=== PATIENT | female | born 1950 | race Caucasian/White ===

== ENCOUNTER → 2023-07-01 13:54 | Outpatient (REF) | payer OTHER, SELFPAY | LOC: HWRAD 13:54 | PROVIDERS: ATTENDING PHYSICIAN Surgery; FAMILY PHYSICIAN Family Medicine | DX: N20.0 Calculus of kidney (principal) | CPT/HCPCS: 76775 ==

== ENCOUNTER → 2024-03-12 13:05 | Outpatient (REF) | payer OTHER, SELFPAY | LOC: WDC 13:05 | PROVIDERS: ATTENDING PHYSICIAN Family Medicine | DX: Z12.31 Encounter for screening mammogram for malignant neoplasm of breast (principal) | CPT/HCPCS: 77063; 77067 ==

== ENCOUNTER → 2024-07-15 16:08 | Outpatient (REF) | payer OTHER, SELFPAY | LOC: HWRAD 16:08 | PROVIDERS: ATTENDING PHYSICIAN Surgery; FAMILY PHYSICIAN Family Medicine | DX: N20.0 Calculus of kidney (principal) | CPT/HCPCS: 76775 ==

== ENCOUNTER → 2024-11-24 14:05 | Outpatient (REF) | payer OTHER, SELFPAY | LOC: RAD 14:05 | PROVIDERS: ATTENDING PHYSICIAN Family Medicine | DX: M54.42 Lumbago with sciatica, left side (principal); M79.602 Pain in left arm; R20.0 Anesthesia of skin; Z98.1 Arthrodesis status | CPT/HCPCS: 72050; 72110 ==

== ENCOUNTER 2025-01-17 08:43 | Inpatient (IN) | payer OTHER, SELFPAY ==
[2025-01-16] VITALS (31 sets, daily range): BP systolic 74–151; BP diastolic 46–89; BMI 37.8; BMI 38.3
--- NOTE | 2025-01-16 03:05 | ED.GENMED ---
History of Present Illness
<Azam Ibarra MD - Last Filed: 01/16/25 13:57>
General
Chief Complaint: Back Pain
Source: patient
Exam Limitations: none
Time Seen by Provider: 01/16/25 02:51
Nursing documentation reviewed up to this point in time: agreed with
History of Present Illness
History of Present Illness:
Patient presents to ED secondary to sudden onset of lower back pain when she got up from sitting position around 9 PM last night, which has gotten progressively worse. Denies direct trauma. Patient states that she has had similar symptoms in the
past secondary to sciatica. Denies loss of sensation or weakness. Denies nausea or vomiting. Denies abdominal pain. Denies fever or chills. Upon arrival to ED, patient is found to be hypotensive with discoloration noted in both legs, which
patient states is not normal. Denies recent illness. Denies recent change in medications or diet. Patient does not take any blood thinning medications.
Past History
<Azam Ibarra MD - Last Filed: 01/16/25 13:57>
Past History
ED Past Medical History: HTN, Hypercholesterolemia, Other (OA) and Other (sleep apnea)
Social History
Tobacco: Non-smoker
Living: with family
Review of Systems
<Azam Ibarra MD - Last Filed: 01/16/25 13:57>
Review of Systems
Allergies reviewed?: Yes
All Other Systems: ROS reviewed and negative except as documented in HPI and ROS
Constitutional: Reports no symptoms; Denies fever
Respiratory: Reports no symptoms
Cardiac: Reports no symptoms
ABD/GI: Reports no symptoms; Denies abdominal pain, vomiting or diarrhea
Musculoskeletal: Reports back pain
Skin: Reports no symptoms
Neurological: Reports numbness; Denies weakness
Phy Exam
<Azam Ibarra MD - Last Filed: 01/16/25 13:57>
Physical Exam
Physical Exam:
Physical Exam
General: mild painful distress, not acutely ill. afebrile. hypotensive
Head: nc/at. eomi
Neck: supple. normal range of motion
Heart: s1/s2 regular rate and rhythm
Lungs: no acute respiratory distress. clear bilaterally
Abdomen: normal bowel sounds. no distention. nontender to palpation
Neuro: alert and oriented x 3. no focal neurological deficits
Skin: no rash
Psychiatric: well kept. interactive and cooperative
Extremities: LE b/l, nonpitting edema with discoloration/dusky appearing
Course
<Azam Ibarra MD - Last Filed: 01/16/25 13:57>
Orders/Labs/Results
Orders:
Orders
01/16/25 02:53
Electrocardiogram (*1) Urgent
Reason for Study: Hypertension, Benign
EKG- Treatment ONCE
01/16/25 02:59
Type And Crossmatch [Type+Screen] Urgent
Complete Blood Count/With Diff Urgent
Comprehensive Metabolic Panel Urgent
Glycohemoglobin (HgbA1c) Urgent
PTT Urgent
Prothrombin Time Urgent
TSH Urgent
Comment: ADD ON
Troponin I Urgent
01/16/25 03:03
CT Abd Aorta Angio W/ Run Off Urgent
Comment:
Reason For Exam: low back pain with lower ext discoloration
01/16/25 03:34
Acetaminophen 1000MG/100Ml [Ofirmev] 1,000 mg in 100 ml IV ONCE
Acetaminophen IV Indication:: ED Narcotic Naive Pt-ONCE
01/16/25 04:27
Dexamethasone Sod Phosphate [Decadron] 10 mg IV NOW STA
Fentanyl Citrate/Pf [Sublimaze] 100 mcg .ROUTE .STK-MED ONE
Fentanyl Citrate/Pf [Sublimaze] 25 mcg IV NOW STA
01/16/25 04:37
0.9% Sodium Chloride 1000 ml [Nss] 1,000 ml IV BOLUS
01/16/25 04:38
0.9% Sodium Chloride 500 ml [Nss] 500 ml IV BOLUS
01/16/25 Breakfast
Cholesterol Lowering
At Your Request: Full Participation
Cholesterol Lowering: Sodium, 2 Gram
01/16/25 07:08
Bedside Glucose- Treatment ONCE
01/16/25 08:14
Admit/Transfer Patient As Directed
Co-Sign Provider:
Level of Care: Observation services
Assign to:: Medical/Surgical
Physician / Group: hospitalist
Diagnosis: CRYSTAL
Reason for Hospitalization: CRYSTAL
01/16/25 08:15
PRN Pain Medication Management As Directed
May give lesser potent ordered pain med per pt: Yes
preference::
Protocol:: Medication orders for pain may be administered in a
manner that supports deferring to patient preference
when the pt is:
- Requesting an ordered lesser potent pain medication.
Least to most potent pain medications are defined
as: acetaminophen < NSAID < tramadol < opioids
(morphine, oxycodone, hydromorphone).
- Requesting a lesser dose of the same medication IF
ORDERED.
- Requesting a less intrusive route of administration
if both routes are prescribed by the provider (PO <
IV).
01/16/25 08:16
Code Status As Directed
Resuscitation Status: Full Code
01/16/25 08:40
Add On- LAB Routine
Tests Added?: hemoglobin A1C, TSh
01/16/25 12:42
0.9% Sodium Chloride 1000 ml [Nss] 1,000 ml IV 100 mls/hr
Acetaminophen [Tylenol] 650 mg PO Q6HPRN PRN
Bisacodyl [Dulcolax] 10 mg RECTAL [id number] PRN
Docusate W/Senna [Senokot-S] 1 tablet PO BIDPRN PRN
HydrALAZINE [Apresoline] 5 mg IV Q6HPRN PRN
Oxycodone [Roxicodone] 5 mg PO Q4HPRN PRN
Polyethylene Glycol Powder [Miralax] 17 grams PO DAILYPRN PRN
01/16/25 12:42
Activity As Directed
Activity Level: Out of Bed-Early Mobility
Vital Signs As Directed
Frequency: Per unit guidelines
Ot Eval And Treat Routine
Pt Eval And Treat Routine
Activity Level: Out of Bed-Early Mobility
DX Deep Vein Thrombosis Video Routine
01/16/25 12:48
BMP [Basic Metabolic Panel] Routine
01/16/25 18:00
Enoxaparin Sodium [Lovenox] 40 mg SC QPM
01/17/25 06:00
Basic Metabolic Panel IN AM
Complete Blood Count/No Diff IN AM
Abnormal Lab Results
01/16/25 01/16/25
02:59 07:17
MCHC 32.1 L g/dL
(33.0-37.0)
Neutrophils % 75.8 H %
(42.2-75.2)
Lymphocytes % 16.7 L %
(20.5-51.1)
PT 15.1 H Sec
(11.4-14.6)
APTT 22.4 L Sec
(23.4-35.0)
Potassium 5.3 H mmol/L
(3.5-5.1)
BUN 36 H mg/dl
(7-17)
Creatinine 1.8 H mg/dL
(0.6-1.0)
Glucose 239 H mg/dl
(70-99)
POC Glucose 135 H mg/dl
(70-99)
01/16/25 02:59
01/16/25 02:59
Vital Signs
Initial and Last Documented VS:
Initial Vital Signs
Temp Pulse Resp BP Pulse Ox
97.6 F 100 24 83/54 99
01/16/25 02:42 01/16/25 02:42 01/16/25 02:42 01/16/25 02:42 01/16/25 02:42
Last Documented Vital Signs
Temp Pulse Resp BP Pulse Ox
97.6 F 62 14 150/64 99
01/16/25 02:42 01/16/25 12:00 01/16/25 12:00 01/16/25 12:00 01/16/25 12:00
<Zeeshan Renteria DO - Last Filed: 01/16/25 07:00>
Orders/Labs/Results
Orders:
Orders
01/16/25 02:53
Electrocardiogram (*1) Urgent
Reason for Study: Hypertension, Benign
EKG- Treatment ONCE
01/16/25 02:59
Type And Crossmatch [Type+Screen] Urgent
Complete Blood Count/With Diff Urgent
Comprehensive Metabolic Panel Urgent
Glycohemoglobin (HgbA1c) Urgent
PTT Urgent
Prothrombin Time Urgent
TSH Urgent
Comment: ADD ON
Troponin I Urgent
01/16/25 03:03
CT Abd Aorta Angio W/ Run Off Urgent
Comment:
Reason For Exam: low back pain with lower ext discoloration
01/16/25 03:34
Acetaminophen 1000MG/100Ml [Ofirmev] 1,000 mg in 100 ml IV ONCE
Acetaminophen IV Indication:: ED Narcotic Naive Pt-ONCE
01/16/25 04:27
Dexamethasone Sod Phosphate [Decadron] 10 mg IV NOW STA
Fentanyl Citrate/Pf [Sublimaze] 100 mcg .ROUTE .STK-MED ONE
Fentanyl Citrate/Pf [Sublimaze] 25 mcg IV NOW STA
01/16/25 04:37
0.9% Sodium Chloride 1000 ml [Nss] 1,000 ml IV BOLUS
01/16/25 04:38
0.9% Sodium Chloride 500 ml [Nss] 500 ml IV BOLUS
01/16/25 Breakfast
Cholesterol Lowering
At Your Request: Full Participation
Cholesterol Lowering: Sodium, 2 Gram
01/16/25 07:08
Bedside Glucose- Treatment ONCE
01/16/25 08:14
Admit/Transfer Patient As Directed
Co-Sign Provider:
Level of Care: Observation services
Assign to:: Medical/Surgical
Physician / Group: hospitalist
Diagnosis: CRYSTAL
Reason for Hospitalization: CRYSTAL
01/16/25 08:15
PRN Pain Medication Management As Directed
May give lesser potent ordered pain med per pt: Yes
preference::
Protocol:: Medication orders for pain may be administered in a
manner that supports deferring to patient preference
when the pt is:
- Requesting an ordered lesser potent pain medication.
Least to most potent pain medications are defined
as: acetaminophen < NSAID < tramadol < opioids
(morphine, oxycodone, hydromorphone).
- Requesting a lesser dose of the same medication IF
ORDERED.
- Requesting a less intrusive route of administration
if both routes are prescribed by the provider (PO <
IV).
01/16/25 08:16
Code Status As Directed
Resuscitation Status: Full Code
01/16/25 08:40
Add On- LAB Routine
Tests Added?: hemoglobin A1C, TSh
01/16/25 12:42
0.9% Sodium Chloride 1000 ml [Nss] 1,000 ml IV 100 mls/hr
Acetaminophen [Tylenol] 650 mg PO Q6HPRN PRN
Bisacodyl [Dulcolax] 10 mg RECTAL [id number] PRN
Docusate W/Senna [Senokot-S] 1 tablet PO BIDPRN PRN
HydrALAZINE [Apresoline] 5 mg IV Q6HPRN PRN
Oxycodone [Roxicodone] 5 mg PO Q4HPRN PRN
Polyethylene Glycol Powder [Miralax] 17 grams PO DAILYPRN PRN
01/16/25 12:42
Activity As Directed
Activity Level: Out of Bed-Early Mobility
Vital Signs As Directed
Frequency: Per unit guidelines
Ot Eval And Treat Routine
Pt Eval And Treat Routine
Activity Level: Out of Bed-Early Mobility
DX Deep Vein Thrombosis Video Routine
01/16/25 12:48
BMP [Basic Metabolic Panel] Routine
01/16/25 18:00
Enoxaparin Sodium [Lovenox] 40 mg SC QPM
01/17/25 06:00
Basic Metabolic Panel IN AM
Complete Blood Count/No Diff IN AM
Abnormal Lab Results
01/16/25 01/16/25
02:59 07:17
MCHC 32.1 L g/dL
(33.0-37.0)
Neutrophils % 75.8 H %
(42.2-75.2)
Lymphocytes % 16.7 L %
(20.5-51.1)
PT 15.1 H Sec
(11.4-14.6)
APTT 22.4 L Sec
(23.4-35.0)
Potassium 5.3 H mmol/L
(3.5-5.1)
BUN 36 H mg/dl
(7-17)
Creatinine 1.8 H mg/dL
(0.6-1.0)
Glucose 239 H mg/dl
(70-99)
POC Glucose 135 H mg/dl
(70-99)
01/16/25 02:59
01/16/25 02:59
Vital Signs
Initial and Last Documented VS:
Initial Vital Signs
Temp Pulse Resp BP Pulse Ox
97.6 F 100 24 83/54 99
01/16/25 02:42 01/16/25 02:42 01/16/25 02:42 01/16/25 02:42 01/16/25 02:42
Last Documented Vital Signs
Temp Pulse Resp BP Pulse Ox
97.6 F 62 14 150/64 99
01/16/25 02:42 01/16/25 12:00 01/16/25 12:00 01/16/25 12:00 01/16/25 12:00
<Azam Ibarra MD - Last Filed: 01/16/25 13:57>
MDM/Problems Addressed
MDM/Problems Addressed:
DPP detected via use of doppler. Decreased sensation reported by patient. STAT CTA aorta with runoff ordered
CTA report reviewed and discussed with on-call vascular surgery () - will come and evaluate the patient in ED, to determine course of treatment. Pt with normal strength with minimally decreased sensation bilaterally.
<Azam Ibarra MD - Last Filed: 01/16/25 13:57>
*Pulse Oximetry
SaO2: 99
Oxygen Mode of Delivery: Room air
Patient hypoxic: no
*EKG
Interpreted by ED Provider?: Yes
EKG Intrepretation Date: 01/16/25
Heart Rate: 94
Rate: normal
Rhythm: sinus
[place]: normal axis
*Critical Care Note
Total Time (30-74mins, 75-104mins- exclusive of procedures): Not Applicable
<Zeeshan Renteria DO - Last Filed: 01/16/25 07:00>
Update Note
Update Note:
PT received in sign out. being seen by vascular surgery now. given initial hypotension and CRYSTAL with ? vascular findings, admit. BP now stable. in addition, hyperglycemia noted...new.
ED Attending Note
<Azam Ibarra MD - Last Filed: 01/16/25 13:57>
-
Portions of this chart may have been created with voice recognition software.� Occasional wrong word or��sound alike� substitutions may have occurred due to the inherent limitations of voice recognition software.
Discharge Plan
Departure
Patient Disposition: Admit
Date of Disposition: 01/16/25
Time of Disposition: 06:58
Admit to: Telemetry
Presentation/result/management discussed w/ accepting MD/DO: Hospitalist
Discharge Problem:
Acute kidney injury, Volume depletion, Acute hyperglycemia
Interventions
Interventions:
*Risk Screen - Suicide Last Done: 01/16/25 02:50
*General Assessment Last Done: 01/16/25 02:50
*Neglect/Abuse Screening Last Done: 01/16/25 02:50
*ED- Fall Risk Assessment Last Done: 01/16/25 02:50
*ED COVID-19 Vaccine History Last Done: 01/16/25 02:50
*ED Influenza Vaccine History Last Done: 01/16/25 02:50
ED-Musculoskeletal Assessment Last Done: 01/16/25 02:51
[2025-01-16 03:15] LABS: Hematocrit 39.3 % (37.0-47.0); Hemoglobin 12.6 g/dL (12.0-16.0); Mean Corp Hgb Conc. 32.1 g/dL (33.0-37.0); Mean Corpuscular Volume 91.2 fL (81.0-99.0); Nucleated Red Blood Cells % 0 %; Platelet Count 176 10^3/uL (130-400); Red Cell Dist. Width 14.1 % (11.5-14.5)
[2025-01-16 03:26] LABS: ALT (SGPT) 22 U/L (0-35); AST (SGOT) 27 U/L (14-36); Albumin 4.5 g/dl (3.5-5.0); Alkaline Phosphatase 59 U/L (38-126); Blood Urea Nitrogen 36 mg/dl (7-17); Calcium 9.9 mg/dl (8.4-10.2); Carbon Dioxide 22 mmol/L (22-30); Chloride 107 mmol/L (98-107); Estimated Creatinine Clearance 33 ml/min; Glucose 239 mg/dl (70-99); INR 1.18; PT 15.1 Sec (11.4-14.6); Potassium 5.3 mmol/L (3.5-5.1); Sodium 140 mmol/L (135-145); Total Protein 7.3 g/dl (6.3-8.2); eGFR 29.38
[2025-01-16 03:27] LABS: APTT 22.4 Sec (23.4-35.0)
[2025-01-16 03:36] LABS: Troponin I 0.029 ng/ml
[2025-01-16] MEDS: OFIRMEV 100 IV (03:37)
[2025-01-16] MEDS: SUBLIMAZE 25 MCG IV (04:31)
[2025-01-16] MEDS: DECADRON 10 MG IV (04:32)
[2025-01-16] MEDS: NSS 1000 IV ×3 (04:37→21:56)
[2025-01-16] MEDS: NSS 500 IV (04:38)
[2025-01-16 07:18] LABS: Glucose - Point of Care 135 mg/dl (70-99)
--- NOTE | 2025-01-16 07:41 | CON.VAS ---
Medical History
-
Chief Complaint: back pain
History of Present Illness:
74 yo F presented with severe back pain last night. She has a history of sciatica and arthritis. Was given steroids and pain medication and currently says her pain has improved. She also was somewhat hypotensive on admission which resolved with
fluids. In the ED it was also noticed that both of her feet were purple. She denies any pain, motor or sensory loss in her legs or feet and says she has not noticed any discoloration before. She says baseline she has no claudication, rest pain or
wounds. CT concerning for lack of contrast distally.
Social History
Tobacco: Smoker
Family History
Family History: Reviewed & Not Pertinent
Allergies / Home Medications
Allergy/AdvReac Type Severity Reaction Status Date / Time
Penicillins Allergy Mild Unknown Verified 01/16/25 03:00
�Medication �Instructions �Recorded �Confirmed �Type
Septra Ds Tablet 1 tab PO BID 12/02/08 12/02/08 History
phenazopyridine 200 mg tablet 200 mg PO PRN PRN urinary 12/02/08 12/02/08 History
hydrocodone 5 mg-acetaminophen 500 1 tab PO .Q4-6HPRN PRN PAIN ##20 03/09/13 Rx
mg tablet
Physical Exam
Vital Signs
Temp Pulse Resp BP Pulse Ox
97.6 F 58 15 122/53 96
01/16/25 02:42 01/16/25 06:45 01/16/25 06:45 01/16/25 06:45 01/16/25 06:45
Lab Results
01/16/25 02:59
01/16/25 02:59
Troponin I 0.029 ng/ml 01/16/25 02:59
Physical Exam
General: Well Developed, Well Nourished, No Apparent Distress and Comfortable
Cardiac: S1/S2
GI: Soft
Musculoskeletal: No Cyanosis (Upon my assessment, feet both pink and warm)
Skin: Warm
Neuro: AO x 3
Psych: Calm
Pulses: Bilateral Femoral: +2, Bilateral Dorsalis Pedis: +2 and Bilateral Posterior Tibial: +2
Assessment / Plan
-
74 yo F here with back pain, incidental purple discoloration of feet
-Upon my assessment fortunately her feet appear pink and well perfused and she has no symptoms. I personally reviewed her CTA. She has in line flow bilaterally until her distal calves, where all tibial vessels do not opacify. Based on her clinical
picture I suspect this is due to contrast timing, cardiac dysfunction limiting contrast progression, or hypoperfusion secondary to the hypotension she had upon admission. She has nice biphasic DP and PT signals currently with no signs of acute or
chronic limb ischemia. No further vascular surgical work up or intervention.
--- NOTE | 2025-01-16 08:19 | HPS.HSE ---
Addendum entered and electronically signed by Gabriel Edmondson MD 01/16/25 13:47:
I personally performed a history and physical exam of the patient and discussed management with the resident. I reviewed the resident's note and agree with the documented findings and plan of care HPI/CC.
Patient is a 74-year-old female with past medical history of essential hypertension, GERD, hepatitis B, history of venous insufficiency, history of IVC filter placement, hyperlipidemia, sciatica came to ER with new onset of lower back pain. Patient
was in her usual state of health until yesterday evening when 9 in the evening patient started having significant lower back pain. Patient took Tylenol and went to bed. In the morning around 2 patient woke up to use the bathroom and continues to
have persistent pain. Patient was feeling diaphoretic and bit nauseous at that time. Due to persistent symptom EMS was called and patient was brought into the ER. In ER patient was noted to hypotensive. Also patient was noted to having bilateral
lower extremity bluish discoloration concerning for acute limb threatening ischemia. A stat CTA angio was done in ER which showed decreased blood flow to lower extremity below popliteal level. Patient was evaluated by vascular surgery and this was
felt to be related to hypoperfusion related. Patient was noted to having renal dysfunction and was planned to be admitted for further evaluation.
During my visit patient resting comfortably and not voicing any complaints of abdominal pain/nausea/vomiting. Patient back pain is better with pain medication/steroid injection,. Patient voices having history of lumbar spinal surgeries but nothing
recent. No fecal or urinary incontinence reported.
Patient denies of having any chest pain/palpitation/dizziness. Oral intake has been normal.
HEENT: No pallor, cyanosis, or jaundice. Throat clear.
NECK: Supple. No JVD.
RESPIRATORY: Lungs clear to auscultation.
CVS: S1, S2 normal. RRR. No murmur, rub or gallop.
ABDOMEN: Soft, non-tender. No distension. BS+/normal.
EXTREMITIES: [place] b/l LE, varicose vein
[employer]: AOx3. No focal deficits.
1. Acute kidney injury on CKD stage IIIA
Right atrophic kidney
- Baseline creatinine 1.1 with GFR of 45+ on outpatient labs
- Creatinine of 1.8 in the morning today
- CT abdomen pelvis did not show any major structural issue
- Possibly combination of lisinopril and Hypotension related. Clinically unclear why patient have Hypotension. No clear signs of infection. No signs of overt volume depletion
- Maintain on IV hydration with normal saline
- Bladder scan and straight cath protocol ordered
2. Hyperkalemia
- Mild and likely driven by CRYSTAL with added potassium citrate use
- Hold IVETH/potassium supplement and monitor potassium post IV hydration
3. Lower extremity discoloration
- CT abdomen pelvis done for concern of acute limb threatening ischemia, infrapopliteal vasculature was poorly visualized likely from hypoperfusion.
- Vascular surgery signed off and no further imaging warranted
4. Sciatica
- Patient got IV Decadron 10 mg in ER, hold further steroid
- Maintain on oral pain medication
- PT OT evaluation
5. Hypotension
- Resolved with IV hydration
- Reason unclear
- Hold blood pressure medication for next 24hrs
6. History of kidney stone
- CT abdomen pelvis showing right upper pole kidney, follows with urology
- Potassium citrate to be held
7. Rheumatoid arthritis
- Significant arthropathy of hand and have difficulty doing fine motor activity
- On Plaquenil to be continued
Full code
Total time spent : 77 mins
I personally saw and examined the patient.
I have reviewed all diagnostic interpretations and treatment plans as written.
Time includes patient management by me, time spent at the patients bedside, time to review lab and imaging results, discussing patient care, documentation in the medical record, and time spent with the family or caregiver and discussing care plan
with RN/Consultants.
Original Note:
Family Physician
-
Family Physician: Brielle Rome
Chief Complaint
-
Low back pain, weakness of lower extremities
History of Present Illness
74-year-old female with history of rheumatoid arthritis, hypertension, urinary incontinence, GERD, chronic low back and neck pain presents sudden onset of lower back pain when she got up from bed at 2 AM to use the restroom. She had similar kind of
pain last night at 9 PM before going to sleep and she noticed that this pain has worsened. She denies any falls/trauma. She states that when she was trying to get up from sitting to standing position she felt sharp shooting pain going down her
legs similar to sciatica. She denies any fever, chills, abdominal pain, vomiting. She admits to feeling a bit too nauseous. She was seen by her family doctor 1 month ago for chronic low back pain and was prescribed prednisone for 10 days which
helped.
Upon arrival to the ED she was hypotensive 83/54, and was found to have discoloration of both legs which was new. Fluid resuscitation helped to improve blood pressure.
Medical History
Past Medical History
Past Medical History: Reports HTN, Hypercholesterolemia and Other (CKD, rheumatoid arthritis, chronic low back pain)
Past Surgical History: Reports Other (Back surgeries )
Social History
Tobacco: Non-smoker
Alcohol: None
Drug: None
Personal:
Living: With Family
Employment: Retired
Family History
Family History: Not pertinent
Allergies / Home Medications
Allergies reflects when Allergies were last updated in [facility].
Home Medications with original date entered in [facility]
Allergy/Medication List:
Allergies
Allergy/AdvReac Type Severity Reaction Status Date / Time
Penicillins Allergy Mild Unknown Verified 01/16/25 03:00
Home Medications
Septra Ds Tablet 1 tab PO BID 12/02/08
phenazopyridine 200 mg tablet 200 mg PO PRN PRN urinary 12/02/08
hydrocodone 5 mg-acetaminophen 500 mg tablet 1 tab PO .Q4-6HPRN PRN PAIN ##20 03/09/13
Review of Systems
-
History Source: Patient
A 12 point ROS was completed and negative except as noted: Yes
Physical Exam
Vital Signs
Vital Signs
Temp Pulse Resp BP Pulse Ox
97.6 F 78 21 135/78 98
01/16/25 02:42 01/16/25 08:00 01/16/25 08:00 01/16/25 07:30 01/16/25 08:00
Physical Exam
General: Comfortable and Conversant
HEENT: NormoCephalic, Anicteric and Other (dry mucous membrane )
Respiratory: Clear
Cardiac: S1/S2 and Regular Rhythm
GI: Soft, Non Tender, Non Distended and Normal Bowel Sounds
Musculoskeletal: No Edema and Other (B/l LE: well perfused LE b/l, 2+ DP bilaterally, purplish blue discoloration. )
Skin: Warm
Neuro: AO x 3
Hematologic/Lymphatic: No Lymphadenopathy
Psych: Calm
Laboratory Results
-
01/16/25 02:59
01/16/25 02:59
Laboratory Results
PT 15.1 Sec (11.4-14.6) H 01/16/25 02:59
INR 1.18 01/16/25 02:59
APTT 22.4 Sec (23.4-35.0) L 01/16/25 02:59
Total Bilirubin 0.6 mg/dl (0.2-1.3) 01/16/25 02:59
AST 27 U/L (14-36) 01/16/25 02:59
ALT 22 U/L (0-35) 01/16/25 02:59
Alkaline Phosphatase 59 U/L (38-126) 01/16/25 02:59
Troponin I 0.029 ng/ml 01/16/25 02:59
Data Reviewed
-
CT Scan: Report Reviewed by me and Discussed with Physician
Lab Data: Labs Reviewed by me and Discussed with Physician
Impression/Plan
-
IMPRESSION:
Bilateral lower extremity pain
Acute on chronic kidney injury
History of right renal chronic atrophy
History of chronic right renal stone
Hyperkalemia
Low back pain
Essential hypertension
History of rheumatoid arthritis
Hyperlipidemia
PLAN:
Bilateral lower extremity pain with skin discoloration
Admit to observation
Suspect hypoperfusion of lower extremity vs DVT
Hypotensive on arrival to ED. Unclear reason for hypotension.
Fluid resuscitation improved blood pressure
Well-perfused bilateral lower extremity, 2+ dorsalis pedis
Vascular aware, no further intervention recommended by vascular because of no acute or chronic signs of venous insufficiency
Continue IV fluids
Tylenol, oxycodone for pain control
Monitor
Acute on chronic kidney injury
Questionable for hypoperfusion vs renal stone
History of CKD stage IIIb
History of right renal chronic atrophy
Creatinine 1.8, baseline is 1.12
Continue IV fluids
Monitor BMP
Hyperkalemia
K5.3
Hold lisinopril
Hold KCl
Monitor BMP. Lokelma if K keeps rising
Low back pain
PT /OT
Tylenol, oxycodone for pain
Hyperglycemia
Monitor glucose
check A1c
Sliding scale
Essential hypertension
Hold lisinopril
IV hydralazine as needed
Monitor blood pressure
Hyperlipidemia
Continue Lipitor
History of rheumatoid arthritis
Full code
Lovenox
chol lowering diet
--- NOTE | 2025-01-16 10:23 | EDCM ---
Reviewed chart and met with pt bedside in ED. Pt lives with her in 1 story home with 3 [address], has railings.
Independent with ADLs, personal care and ambulation at baseline. Uses Rollator, also has SPC, WC, grab bars in shower and around toilet, also has shower chair but does not use, is disabled and also uses equipment.
BERRY reviewed and singed, copy left with pt.
Confirms prescription coverage.
Hx VN in distant past, no hx SNF
PCP: Brielle Rome
Pharmacy: [facility] [address], [place]
CM will continue to follow for all discharge planning needs.
[2025-01-16 10:54] LABS: TSH 1.08 uIU/ml (0.47-4.68)
[2025-01-16 13:08] LABS: Blood Urea Nitrogen 40 mg/dl (7-17); Calcium 9.5 mg/dl (8.4-10.2); Carbon Dioxide 18 mmol/L (22-30); Chloride 107 mmol/L (98-107); Estimated Creatinine Clearance 31 ml/min; Glucose 157 mg/dl (70-99); Potassium 4.8 mmol/L (3.5-5.1); Sodium 136 mmol/L (135-145); eGFR 27.54
[2025-01-16 13:49] LABS: Glycohemoglobin (HgbA1c) 5.6 % (4.0-5.9)
[2025-01-16] MEDS: DITROPAN 15 MG PO (14:09)
[2025-01-16] MEDS: LIPITOR 10 MG PO (14:09)
[2025-01-16] MEDS: LOVENOX 40 MG SC (17:47)
[2025-01-16] MEDS: SODIUM BICARBONATE 650 MG PO ×2 (17:47→21:48)
[2025-01-16] MEDS: TYLENOL 650 MG PO (21:47)
[2025-01-16] MEDS: PLAQUENIL 200 MG PO (21:48)
[2025-01-17 06:00] VITALS: BMI 38.3
[2025-01-17 07:23] VITALS: BP 102/52
[2025-01-17 08:21] LABS: Blood Urea Nitrogen 43 mg/dl (7-17); Calcium 9.1 mg/dl (8.4-10.2); Carbon Dioxide 17 mmol/L (22-30); Chloride 108 mmol/L (98-107); Estimated Creatinine Clearance 27 ml/min; Glucose 111 mg/dl (70-99); Potassium 4.7 mmol/L (3.5-5.1); Sodium 136 mmol/L (135-145); eGFR 23.09
[2025-01-17 08:45] LABS: Hematocrit 37.1 % (37.0-47.0); Hemoglobin 12.1 g/dL (12.0-16.0); Mean Corp Hgb Conc. 32.6 g/dL (33.0-37.0); Mean Corpuscular Volume 92.1 fL (81.0-99.0); Platelet Count 138 10^3/uL (130-400); Red Cell Dist. Width 14.4 % (11.5-14.5)
[2025-01-17] MEDS: LIPITOR 10 MG PO (09:02)
[2025-01-17] MEDS: DITROPAN 15 MG PO (09:02)
[2025-01-17] MEDS: PLAQUENIL 200 MG PO ×2 (09:02→20:11)
[2025-01-17] MEDS: SODIUM BICARBONATE 650 MG PO (09:02)
[2025-01-17] MEDS: NSS IV (09:24)
[2025-01-17] MEDS: SODIUM BICARBONATE 1150 MEQ IV ×2 (09:28→17:13)
[2025-01-17 10:02] LABS: Cortisol, Random 9.0 ug/dl
--- NOTE | 2025-01-17 11:45 | W.CON.NEPH ---
Consultation
-
Date/Time Consultation Requested: 01/17/2025 11 AM
Date/Time Consultation Performed: 01/17/2025 11 AM
Requesting Provider: Dr. Edmondson
Performing Provider: Dr. Chiu
Reason for Consultation: CRYSTAL
Medical History
-
Chief Complaint: Back pain
History of Present Illness:
This is a 74-year-old female who has chronic kidney disease stage IIIa baseline creatinine approximately 1.1 at baseline. She has hyperlipidemia controlled with statin therapy as well as rheumatoid arthritis controlled with hydroxychloroquine. She
says that a couple of weeks ago she had a 10-day course of steroids because of significant rheumatoid pain. Yesterday she developed significant lower back pain with worsening numbness down her legs. She came to the emergency room because of this.
She was noted to be extremely hypotensive with systolic blood pressures in the 80s. There is concern that she had bluish discoloration of her lower legs with ischemia and a CT angiogram was performed. She was evaluated by vascular surgery who do
not believe that this was an acute ischemic issue but rather a hypotensive hypoperfusion issue. He was given IV fluids and started on midodrine with improvement of her blood pressures as well as improvement of the duskiness of her legs. She was
noted to have acute kidney injury with creatinine of 1.8 at the time of admission which has now risen to 2.1. Her back pain is still present though slightly improved.
Past Medical History
Hypertension
Nephrolithiasis, uric acid
Staghorn calculus left
Atrophic right kidney
CKD 3A
Rheumatoid arthritis
Back surgery
Spontaneous CSF leak with repair
Uterine prolapse�pessary
L4-L5 spinal fusion
Left knee replacement
Right hip replacement
IVC filter
Venous insufficiency
Social History
Tobacco: Former Smoker
Alcohol: None
Family History
Family History: Not Pertinent
Allergies / Home Medications
Allergy/AdvReac Type Severity Reaction Status Date / Time
Penicillins Allergy Mild Unknown Verified 01/16/25 17:50
�Medication �Instructions �Recorded �Confirmed �Type
acetaminophen 325 mg tablet 650 mg PO Q6HPRN PRN mild pain 01/16/25 01/16/25 History
(Tylenol)
atorvastatin 10 mg tablet (Lipitor) 10 mg PO DAILY 01/16/25 01/16/25 History
calcium carbonate (Tums) 200 mg PO QIDPRN PRN gerd 01/16/25 01/16/25 History
folic acid 1 mg tablet 1 mg PO DAILY 01/16/25 01/16/25 History
glucosamine sulf dipot 1 cap PO DAILY Supplement 01/16/25 01/16/25 History
chlr,msm,chond 550 mg-C 30 mg-ozzy
1 mg capsule (Glucosamine
Chondroitin)
hydroxychloroquine 200 mg tablet 200 mg PO BID 01/16/25 01/16/25 History
(Plaquenil)
lisinopril 10 mg tablet 10 mg PO DAILY 01/16/25 01/16/25 History
oxybutynin chloride 15 mg 15 mg PO DAILY 01/16/25 01/16/25 History
tablet,extended release 24 hr
potassium chloride 10 mEq 20 meq PO BID 01/16/25 01/16/25 History
tablet,extended release
psyllium 1 packet PO DAILY 01/16/25 01/16/25 History
therapeutic multivitamin 1 tab PO DAILY 01/16/25 01/16/25 History
Physical Exam
Vital Signs
Vital Signs
Temp Pulse Resp BP Pulse Ox
97.6 F 84 20 102/52 98
01/17/25 07:23 01/17/25 07:23 01/17/25 07:23 01/17/25 07:23 01/17/25 07:23
Lab Results
WBC 10.3 10^3/uL (4.8-10.8) 01/17/25 07:18
RBC 4.03 10^6/uL (4.20-5.40) L 01/17/25 07:18
Hgb 12.1 g/dL (12.0-16.0) 01/17/25 07:18
Hct 37.1 % (37.0-47.0) 01/17/25 07:18
Plt Count 138 10^3/uL (130-400) D 01/17/25 07:18
Sodium 136 mmol/L (135-145) 01/17/25 07:18
Potassium 4.7 mmol/L (3.5-5.1) 01/17/25 07:18
Chloride 108 mmol/L (98-107) H 01/17/25 07:18
Carbon Dioxide 17 mmol/L (22-30) L 01/17/25 07:18
BUN 43 mg/dl (7-17) H 01/17/25 07:18
Creatinine 2.2 mg/dL (0.6-1.0) H 01/17/25 07:18
eGFR 23.09 01/17/25 07:18
Glucose 111 mg/dl (70-99) H 01/17/25 07:18
Calcium 9.1 mg/dl (8.4-10.2) 01/17/25 07:18
Albumin 4.5 g/dl (3.5-5.0) 01/16/25 02:59
Laboratory Tests
05/21/22 01/16/25
12:47 02:59
Creatinine 0.8 1.8 H
October 10, 2024 creatinine 1.1, bicarbonate 19
CT angio abdomen 01/16/2025
IMPRESSION:
1. SEVERE DISCOGENIC DEGENERATIVE DISEASE at L2/L3, L3/L4, and L5/S1.
2. Previous posterior decompression and bilateral posterior osseous fusion/instrumentation at L4/L5.
3. SEVERE CHRONIC ASYMMETRIC ATROPHY of the RIGHT KIDNEY suggesting chronic ischemia.
4. Bilateral adrenal adenomas.
5. Small hiatal hernia.
6. Laparoscopic gastric band and IVC filter in place.
7. Severe diverticulosis in the sigmoid colon.
8. Large amount of fecal material in the rectum.
9. Severe atrophy of the muscles of the right lower leg and foot.
10. Bilateral total hip arthroplasties in place.
11. Left total knee arthroplasty in place.
ABDOMINAL AORTA:
1. COMPLETE CHRONIC OCCLUSION of the RIGHT RENAL ARTERY with severe right renal ischemia. Severe chronic right renal atrophy.
2. Minimal atherosclerotic plaque in the abdominal aorta.
RIGHT LOWER EXTREMITY:
1. SEVERE INFRAPOPLITEAL ATHEROSCLEROTIC DISEASE. Occlusion of the anterior tibial, posterior tibial, and peroneal arteries in the mid lower leg without evidence for arterial runoff to the level of the right ankle or foot.
2. No CTA evidence for stenosis or occlusion in the right iliac, femoral, or popliteal arteries.
LEFT LOWER EXTREMITY:
1. SEVERE INFRAPOPLITEAL ATHEROSCLEROTIC DISEASE with three-vessel runoff to the level of the left ankle, but not into the left foot.
2. No CTA evidence for flow-limiting stenosis or occlusion in the left iliac, femoral, or popliteal arteries.
Physical Exam
Patient is awake alert oriented and in no distress. Mood and affect were pleasant, insight and judgment were good. Pupils are equal round and reactive to light, extraocular movements are intact, sclera were anicteric. Hearing was normal, ears and
nose are intact. Oropharynx was clear. Neck was supple with trachea midline and no thyromegaly. Heart was regular rate and rhythm without rubs. Lower extremities without edema. Lungs were clear to auscultation bilaterally and with normal
excursion. Abdomen was soft, nontender, with normal active bowel sounds, and no hepatosplenomegaly. Skin was without rash and with normal turgor.
Data Reviewed
-
CT Scan: Report Reviewed by me
Medical Tests (Nuc Med, Echo etc): Image Personally Visualized and interpreted (EKG 01/16/2025 by my reading normal sinus rhythm)
Labs: Labs Reviewed by me
Old Records: Reviewed
Assessment/Plan
-
Assessment
CRYSTAL
CKD 3A, 1.1
Uric acid nephrolithiasis with left staghorn calculus
Atrophic right kidney
Hypertension
Hypotension
Back pain
Lower extremity neuropathy
rheumatoid arthritis
Metabolic acidosis
Hyperkalemia
Plan
Check cosyntropin stim test
Follow BMP there certainly may be a evolving component of contrast nephropathy
On top of CRYSTAL which is evolving from hypotension
Check urine studies
Hold lisinopril
Hold potassium supplements
Continue IV fluids
Wean midodrine as allowed
[2025-01-17] MEDS: BenGay-Like 1 APPLIC TOPICAL ×3 (12:55→22:41)
--- NOTE | 2025-01-17 13:20 | W.PN.HOSP.TC ---
Today's Communication/Plan
-
see note
Assessment / Plan
Assessment / Plan
CTA a/p with LE runoff
1. SEVERE DISCOGENIC DEGENERATIVE DISEASE at L2/L3, L3/L4, and L5/S1.
2. Previous posterior decompression and bilateral posterior osseous fusion/instrumentation at L4/L5.
3. SEVERE CHRONIC ASYMMETRIC ATROPHY of the RIGHT KIDNEY suggesting chronic ischemia.
4. Bilateral adrenal adenomas.
5. Small hiatal hernia.
6. Laparoscopic gastric band and IVC filter in place.
7. Severe diverticulosis in the sigmoid colon.
8. Large amount of fecal material in the rectum.
9. Severe atrophy of the muscles of the right lower leg and foot.
10. Bilateral total hip arthroplasties in place.
11. Left total knee arthroplasty in place.
ABDOMINAL AORTA:
1. COMPLETE CHRONIC OCCLUSION of the RIGHT RENAL ARTERY with severe right renal ischemia. Severe chronic right renal atrophy.
2. Minimal atherosclerotic plaque in the abdominal aorta.
RIGHT LOWER EXTREMITY:
1. SEVERE INFRAPOPLITEAL ATHEROSCLEROTIC DISEASE. Occlusion of the anterior tibial, posterior tibial, and peroneal arteries in the mid lower leg without evidence for arterial runoff to the level of the right ankle or foot.
2. No CTA evidence for stenosis or occlusion in the right iliac, femoral, or popliteal arteries.
LEFT LOWER EXTREMITY:
1. SEVERE INFRAPOPLITEAL ATHEROSCLEROTIC DISEASE with three-vessel runoff to the level of the left ankle, but not into the left foot.
2. No CTA evidence for flow-limiting stenosis or occlusion in the left iliac, femoral, or popliteal arteries.

1. Acute kidney injury on CKD stage IIIA
Right atrophic kidney
- Baseline creatinine 1.1 with GFR of 45+ on outpatient labs
- Creatinine continues trend up, 2.2 today
- CT abdomen pelvis did not show any new structural issues, showed known right atrophic kidney.
- Possibly combination of lisinopril and Hypotension related. Clinically unclear why patient have Hypotension. No clear signs of infection. No signs of overt volume depletion
- Got IV contrast at admit for CT a/p and likely may have component of TACHO
- IVF changed to bicarb IVF
- Nephro help requested
2. Hyperkalemia - resolved
- Mild and likely driven by CRYSTAL with added potassium citrate use
- Hold IVETH/potassium supplement and monitor potassium post IV hydration
3. Lower extremity discoloration
- CT abdomen pelvis done for concern of acute limb threatening ischemia, infrapopliteal vasculature was poorly visualized likely from hypoperfusion.
- Vascular surgery signed off and no further imaging warranted
4. Sciatica
- Patient got IV Decadron 10 mg in ER, hold further steroid
- Maintain on oral pain medication
- PT OT evaluation
5. Hypotension
- Got IV fluid and ER and improved although blood pressure soft again in the night
- Random cortisol of 9 in morning today. ACTH stim test ordered. Has history of RA but denies of being on long durartions of steroids in the past
- Continue holding blood pressure medication
- Reason unclear
6. History of kidney stone
- CT abdomen pelvis showing right upper pole kidney, follows with urology
- Potassium citrate to be held
7. Rheumatoid arthritis
- Significant arthropathy of hand and have difficulty doing fine motor activity
- On Plaquenil to be continued
Full code
Care plan discussed with nephrology.
Increased risk of further persistent hypotension/TACHO causing worsening renal dysfunction. Will continue to require monitoring in hospital.
Anticipated Discharge: > 48 hours
Subjective/Interval History
-
Date of Service: January 17, 2025
Complaining of some back pain, denies of radiation down to the leg
Left leg numbness, which has been present in the past
Objective Data
-
Labs:
Laboratory Results
01/17/25
07:18
WBC 10.3
Hgb 12.1
Hct 37.1
Plt Count 138 D
Sodium 136
Potassium 4.7
Chloride 108 H
Carbon Dioxide 17 L
BUN 43 H
Creatinine 2.2 H
Glucose 111 H
Calcium 9.1
Vital Signs:
Vital Signs
Temp Pulse Resp BP Pulse Ox
97.6 F 84 20 102/52 98
01/17/25 07:23 01/17/25 07:23 01/17/25 07:23 01/17/25 07:23 01/17/25 07:23
I&O
01/16/25 01/17/25 01/18/25
06:59 06:59 06:59
Intake Total 1120 / 1120
Balance 1120 / 1120
Review of Systems
-
Respiratory: Reports No Symptoms
Cardiac: Reports No Symptoms
Abdomen/GI: Reports No Symptoms
Physical Exam
-
General: No Apparent Distress and Comfortable
HEENT: Negative Oxygen
Musculoskeletal: Other (Bilateral lower extremity varicose vein); Negative Edema, Right Lower Extrem or Edema, Left Lower Extrem
Neuro: Awake, Alert, Oriented, No Motor Deficits and Nonfocal/Grossly Intact
Psych: Calm
[2025-01-17 14:10] VITALS: BP 126/65; PULSE 76; O2SAT 100
[2025-01-17 14:44] VITALS: BP 126/65; PULSE 76; O2SAT 100
[2025-01-17 15:10] VITALS: BP 118/67
[2025-01-17] MEDS: TUMS CHEWABLE TABLET 400 MG PO ×2 (16:13→20:41)
[2025-01-17] MEDS: TYLENOL 650 MG PO (16:26)
[2025-01-17 16:49] LABS: Urine Character Cloudy (Clear)
[2025-01-17] MEDS: LOVENOX 40 MG SC (17:14)
[2025-01-17 17:21] LABS: Urine Squamous Cell >30 /LPF (Few)
[2025-01-17 17:22] LABS: Urine White Cell 40-50 /HPF (0-5)
[2025-01-17 23:31] VITALS: BP 122/91
[2025-01-18] MEDS: SODIUM BICARBONATE 1150 MEQ IV (00:39)
[2025-01-18] MEDS: TUMS CHEWABLE TABLET 400 MG PO ×2 (00:42→19:35)
[2025-01-18] MEDS: TYLENOL 650 MG PO ×2 (01:30→13:41)
[2025-01-18 07:30] VITALS: BP 102/62
[2025-01-18 07:35] LABS: Hematocrit 30.6 % (37.0-47.0); Hemoglobin 10.3 g/dL (12.0-16.0); Mean Corp Hgb Conc. 33.7 g/dL (33.0-37.0); Mean Corpuscular Volume 87.9 fL (81.0-99.0); Platelet Count 103 10^3/uL (130-400); Red Cell Dist. Width 14.3 % (11.5-14.5)
[2025-01-18 08:19] LABS: Blood Urea Nitrogen 55 mg/dl (7-17); Calcium 7.9 mg/dl (8.4-10.2); Carbon Dioxide 27 mmol/L (22-30); Chloride 98 mmol/L (98-107); Estimated Creatinine Clearance 23 ml/min; Glucose 117 mg/dl (70-99); Potassium 4.0 mmol/L (3.5-5.1); Sodium 130 mmol/L (135-145); eGFR 18.90
[2025-01-18] MEDS: LIPITOR 10 MG PO (08:26)
[2025-01-18] MEDS: DITROPAN 15 MG PO (08:26)
[2025-01-18] MEDS: PLAQUENIL 200 MG PO ×2 (08:26→20:53)
[2025-01-18] MEDS: BenGay-Like 1 APPLIC TOPICAL ×4 (08:26→21:02)
[2025-01-18] MEDS: NSS (PRESERVATIVE FREE) 1 ML IV (08:39)
[2025-01-18] MEDS: CORTROSYN 0.25 MG IV (08:44)
[2025-01-18 09:02] LABS: ACTH Stim Cortisol 0 Min 22.6 ug/dl
[2025-01-18 10:14] LABS: ACTH Stim Cortisol 30 Min 44.5 ug/dl
--- NOTE | 2025-01-18 10:43 | CM ---
CM reviewed chart, patient seen bedside.
CM discussed therapy recommendations of SNF.
Patient hesitant to d.c to SNF but agreeable to referral to [facility] and facilities in [facility].
Patient reports her is disabled, house is completely handicap accessible.
CM will continue to follow for all d.c planning needs.
Plan; referrals placed for SNF, will need auth
[2025-01-18 11:07] LABS: ACTH Stim Cortisol 60 Min 57.0 ug/dl
[2025-01-18] MEDS: SODIUM BICARBONATE IV (11:09)
[2025-01-18 14:18] LABS: Hematocrit 31.9 % (37.0-47.0); Hemoglobin 10.6 g/dL (12.0-16.0); Mean Corp Hgb Conc. 33.2 g/dL (33.0-37.0); Mean Corpuscular Volume 88.4 fL (81.0-99.0); Platelet Count 100 10^3/uL (130-400); Red Cell Dist. Width 14.2 % (11.5-14.5)
--- NOTE | 2025-01-18 14:18 | PTCARENOTE ---
Patient OOB to chair with assist x1. Tylenol given for chronic low back pain with good relief. Patient voiding small amounts of tea colored urine, 50-100mls at a time. Bladder scans have been <100ml. Physician aware of decreased urine output.
--- NOTE | 2025-01-18 14:40 | W.PN.NEPH.PH ---
Today's Communication / Plan
-
ok monitor off IVF
await echo
follow labs
Assessment/Plan
-
Assessment
CRYSTAL
CKD 3A, 1.1
Uric acid nephrolithiasis with left staghorn calculus
Atrophic right kidney
Hypertension
Hypotension
Back pain
Lower extremity neuropathy
rheumatoid arthritis
Metabolic acidosis
Hyperkalemia
h/o gastric lap band
Plan
CRYSTAL-possible TACHO and prerenal, U na low
UTI sample, no symp. check U PCR
CT abd with out hydro, known atrophic right kidney , no change in left k stone
suspect cr reaching its peak, monitor UOP, PVR 33cc
Hypotension -good response to ACTH test
titrate down midodrine as able and hold ACEI
pt reports having >20lbs wt loss in last 2m with controlling diet could also contributing some of the low BP
hyponatremia-monitor off IVF , encourage solute intake
met acidosis improved with IVF bicarb
await echo
-
-
Date of Service: January 18, 2025
CC / HPI / ROS
-
Chief Complaint:
CRYSTAL
History of Present Illness:
cr up at 2.6, BP soft on midodirne
no fever
hb stable at 10.6
Review of Systems:
no cp or sob at rest
no n/v
has h/o lap band so can not take lerge amount of food or liquids
Labs
-
Labs:
WBC 8.7 10^3/uL (4.8-10.8) 01/18/25 14:09
RBC 3.61 10^6/uL (4.20-5.40) L 01/18/25 14:09
Hgb 10.6 g/dL (12.0-16.0) L 01/18/25 14:09
Hct 31.9 % (37.0-47.0) L 01/18/25 14:09
Plt Count 100 10^3/uL (130-400) L 01/18/25 14:09
eGFR 18.90 01/18/25 07:19
Albumin 4.5 g/dl (3.5-5.0) 01/16/25 02:59
Physical Exam
-
Vital Signs:
Vital Signs
Temp Pulse Resp BP Pulse Ox
98.4 F 84 16 102/62 98
01/18/25 07:30 01/18/25 07:30 01/18/25 07:30 01/18/25 07:30 01/18/25 07:30
Cardiovascular:: Regular rate and rhythm
Respiratory:: Bilateral: CTA
Lung Excursion:: Normal
Abdomen:: Nontender and Soft
Extremity Edema:: +1: Bilateral:
Bowser Catheter: No
[2025-01-18 14:45] LABS: Blood Urea Nitrogen 57 mg/dl (7-17); Calcium 8.7 mg/dl (8.4-10.2); Carbon Dioxide 29 mmol/L (22-30); Chloride 95 mmol/L (98-107); Estimated Creatinine Clearance 18 ml/min; Glucose 119 mg/dl (70-99); Potassium 4.2 mmol/L (3.5-5.1); Sodium 130 mmol/L (135-145); eGFR 14.20
--- NOTE | 2025-01-18 14:45 | W.PN.HOSP.TC ---
Today's Communication/Plan
-
monitor urine outpt
stop fluids
echo
Assessment / Plan
Assessment / Plan
CTA a/p with LE runoff
1. SEVERE DISCOGENIC DEGENERATIVE DISEASE at L2/L3, L3/L4, and L5/S1.
2. Previous posterior decompression and bilateral posterior osseous fusion/instrumentation at L4/L5.
3. SEVERE CHRONIC ASYMMETRIC ATROPHY of the RIGHT KIDNEY suggesting chronic ischemia.
4. Bilateral adrenal adenomas.
5. Small hiatal hernia.
6. Laparoscopic gastric band and IVC filter in place.
7. Severe diverticulosis in the sigmoid colon.
8. Large amount of fecal material in the rectum.
9. Severe atrophy of the muscles of the right lower leg and foot.
10. Bilateral total hip arthroplasties in place.
11. Left total knee arthroplasty in place.
ABDOMINAL AORTA:
1. COMPLETE CHRONIC OCCLUSION of the RIGHT RENAL ARTERY with severe right renal ischemia. Severe chronic right renal atrophy.
2. Minimal atherosclerotic plaque in the abdominal aorta.
RIGHT LOWER EXTREMITY:
1. SEVERE INFRAPOPLITEAL ATHEROSCLEROTIC DISEASE. Occlusion of the anterior tibial, posterior tibial, and peroneal arteries in the mid lower leg without evidence for arterial runoff to the level of the right ankle or foot.
2. No CTA evidence for stenosis or occlusion in the right iliac, femoral, or popliteal arteries.
LEFT LOWER EXTREMITY:
1. SEVERE INFRAPOPLITEAL ATHEROSCLEROTIC DISEASE with three-vessel runoff to the level of the left ankle, but not into the left foot.
2. No CTA evidence for flow-limiting stenosis or occlusion in the left iliac, femoral, or popliteal arteries.

#Acute kidney injury on CKD stage IIIA
#Right atrophic kidney
#Acute Metabolic Acidosis
- Baseline creatinine 1.1 with GFR of 45+ on outpatient labs
-Likely ATN 2/2 to TACHO v Hypotension related
- Creatinine continues trend up, although minimal urine output today which has improved from yesterday
- CT abdomen pelvis did not show any new structural issues, showed known right atrophic kidney.
- Possibly combination of lisinopril and Hypotension related. Clinically unclear why patient have Hypotension. No clear signs of infection. No signs of overt volume depletion
-S/p Bicarb
-Renal consulted
-Minimal PVR; if output does not improve - will need to place almodovar
-FeNa
#Hyperkalemia - resolved
- Mild and likely driven by CRYSTAL with added potassium citrate use
- Hold IVETH/potassium supplement and monitor potassium post IV hydration
#Hyponatremia
-likely related to voume overload now that not able to urinate
- Monitor with hopeful improvement in renal function
#Lower extremity discoloration
- CT abdomen pelvis done for concern of acute limb threatening ischemia, infrapopliteal vasculature was poorly visualized likely from hypoperfusion.
- Vascular surgery signed off and no further imaging warranted
#Sciatica
- Patient got IV Decadron 10 mg in ER, hold further steroid
- Maintain on oral pain medication
- PT OT evaluation
#Hypotension
- Got IV fluid and ER and improved although blood pressure soft again in the night
- Continue holding blood pressure medication
- F/u ECHO with LE edema as well
#LE Edema
-likely 2/2 to CRYSTAL although may be related to component of heart failure
-ECHO
-Monitor with hopeful renal function recovery
#History of kidney stone
- CT abdomen pelvis showing right upper pole kidney, follows with urology
- Potassium citrate to be held
#Rheumatoid arthritis
- Significant arthropathy of hand and have difficulty doing fine motor activity
- On Plaquenil to be continued
Full code
Total time spent on today's encounter was 51 minutes which included time spent in counseling the patient/family regarding diagnosis and treatment plan as listed above, goals of care, and symptom management. Case was discussed with nursing staff,
specialists, and care coordinators/case management. All labs and imaging personally reviewed by me. Remainder the time spent in detailed review of previous records, lab data, imaging, and other medical provider documentation.
Anticipated Discharge: > 48 hours
Subjective/Interval History
-
Date of Service: January 18, 2025
No urine output yesterday, slightly today
Objective Data
-
Labs:
Laboratory Results
01/18/25 01/18/25
07:19 14:09
WBC 6.7 8.7
Hgb 10.3 L 10.6 L
Hct 30.6 L 31.9 L
Plt Count 103 L D 100 L
Sodium 130 L 130 L
Potassium 4.0 4.2
Chloride 98 95 L
Carbon Dioxide 27 29
BUN 55 H 57 H
Creatinine 2.6 H 3.3 H
Glucose 117 H 119 H
Calcium 7.9 L 8.7
Vital Signs:
Vital Signs
Temp Pulse Resp BP Pulse Ox
98.4 F 84 16 102/62 98
01/18/25 07:30 01/18/25 07:30 01/18/25 07:30 01/18/25 07:30 01/18/25 07:30
I&O
01/17/25 01/18/25 01/19/25
06:59 06:59 06:59
Intake Total 1120 / 1120 3680 / 3680
Balance 1120 / 1120 3680 / 3680
Review of Systems
-
Respiratory: Reports No Symptoms
Cardiac: Reports No Symptoms
Abdomen/GI: Reports No Symptoms
Data Reviewed
-
CT Scan: Report Reviewed by me
Labs: Labs Reviewed by me
[2025-01-18 15:30] VITALS: BP 160/63
[2025-01-18 16:48] VITALS: PULSE 83; O2SAT 96
[2025-01-18] MEDS: LOVENOX 40 MG SC (17:03)
[2025-01-18 23:00] VITALS: BP 116/48
[2025-01-19] MEDS: TUMS CHEWABLE TABLET 400 MG PO ×3 (00:17→12:56)
[2025-01-19] MEDS: TYLENOL 650 MG PO ×3 (00:17→21:28)
[2025-01-19 08:17] VITALS: BP 115/71
[2025-01-19 08:43] LABS: Hematocrit 33.8 % (37.0-47.0); Hemoglobin 10.9 g/dL (12.0-16.0); Mean Corp Hgb Conc. 32.2 g/dL (33.0-37.0); Mean Corpuscular Volume 90.1 fL (81.0-99.0); Platelet Count 120 10^3/uL (130-400); Red Cell Dist. Width 14.3 % (11.5-14.5)
[2025-01-19 09:04] LABS: ALT (SGPT) 21 U/L (0-35); AST (SGOT) 29 U/L (14-36); Albumin 4.0 g/dl (3.5-5.0); Alkaline Phosphatase 61 U/L (38-126); Blood Urea Nitrogen 60 mg/dl (7-17); Calcium 9.1 mg/dl (8.4-10.2); Carbon Dioxide 27 mmol/L (22-30); Chloride 95 mmol/L (98-107); Estimated Creatinine Clearance 19 ml/min; Glucose 96 mg/dl (70-99); Potassium 4.0 mmol/L (3.5-5.1); Sodium 132 mmol/L (135-145); Total Protein 6.7 g/dl (6.3-8.2); eGFR 14.73
[2025-01-19] MEDS: PLAQUENIL 200 MG PO ×2 (09:09→19:47)
[2025-01-19] MEDS: LIPITOR 10 MG PO (09:10)
[2025-01-19] MEDS: DITROPAN 15 MG PO (09:11)
[2025-01-19] MEDS: BenGay-Like 1 APPLIC TOPICAL ×4 (09:14→21:14)
--- NOTE | 2025-01-19 11:09 | CM ---
CM reviewed chart, patient seen beside.
CM discussed referrals placed to SNF- [facility] has accepted, awaiting decision from [facility].
Patient will require insurance auth for SNF.
CM will continue to follow.
Plan; SNF when stable, will require auth, patient preference [facility]
--- NOTE | 2025-01-19 14:08 | W.PN.HOSP.TC ---
Today's Communication/Plan
-
Monitor renal function, sodium levels
PT/OT
Assessment / Plan
Assessment / Plan
CTA a/p with LE runoff
1. SEVERE DISCOGENIC DEGENERATIVE DISEASE at L2/L3, L3/L4, and L5/S1.
2. Previous posterior decompression and bilateral posterior osseous fusion/instrumentation at L4/L5.
3. SEVERE CHRONIC ASYMMETRIC ATROPHY of the RIGHT KIDNEY suggesting chronic ischemia.
4. Bilateral adrenal adenomas.
5. Small hiatal hernia.
6. Laparoscopic gastric band and IVC filter in place.
7. Severe diverticulosis in the sigmoid colon.
8. Large amount of fecal material in the rectum.
9. Severe atrophy of the muscles of the right lower leg and foot.
10. Bilateral total hip arthroplasties in place.
11. Left total knee arthroplasty in place.
ABDOMINAL AORTA:
1. COMPLETE CHRONIC OCCLUSION of the RIGHT RENAL ARTERY with severe right renal ischemia. Severe chronic right renal atrophy.
2. Minimal atherosclerotic plaque in the abdominal aorta.
RIGHT LOWER EXTREMITY:
1. SEVERE INFRAPOPLITEAL ATHEROSCLEROTIC DISEASE. Occlusion of the anterior tibial, posterior tibial, and peroneal arteries in the mid lower leg without evidence for arterial runoff to the level of the right ankle or foot.
2. No CTA evidence for stenosis or occlusion in the right iliac, femoral, or popliteal arteries.
LEFT LOWER EXTREMITY:
1. SEVERE INFRAPOPLITEAL ATHEROSCLEROTIC DISEASE with three-vessel runoff to the level of the left ankle, but not into the left foot.
2. No CTA evidence for flow-limiting stenosis or occlusion in the left iliac, femoral, or popliteal arteries.

#Acute kidney injury on CKD stage IIIA
#Right atrophic kidney
#Acute Metabolic Acidosis
- Baseline creatinine 1.1 with GFR of 45+ on outpatient labs
-Likely ATN 2/2 to TACHO v Hypotension related
--Improved
- Hopefully cr peaked at 3.3 - ctm
- CT abdomen pelvis did not show any new structural issues, showed known right atrophic kidney.
- Possibly combination of lisinopril and Hypotension related. Clinically unclear why patient have Hypotension. No clear signs of infection. No signs of overt volume depletion
-S/p Bicarb
-Holding ACEI indefinitely
-Renal consulted
#Hyperkalemia - resolved
- Mild and likely driven by CRYSTAL with added potassium citrate use
- Hold IVETH/potassium supplement and monitor potassium post IV hydration
#Hyponatremia
-likely related to voume overload now that not able to urinate
- Monitor with hopeful improvement in renal function
#Lower extremity discoloration
- CT abdomen pelvis done for concern of acute limb threatening ischemia, infrapopliteal vasculature was poorly visualized likely from hypoperfusion.
- Vascular surgery signed off and no further imaging warranted
#Sciatica
- Patient got IV Decadron 10 mg in ER, hold further steroid
- Maintain on oral pain medication
- PT OT evaluation
-F/u Ortho spine outpatient; patient cannot tolerate MRI here and will need open MRI
#Hypotension
- Got IV fluid and ER and improved although blood pressure soft again in the night
- Continue holding blood pressure medication
- F/u ECHO with LE edema as well: LVEF 60-65; mild aortic and mitral regurg
#LE Edema
-likely 2/2 to CRYSTAL
-ECHO - EF WNL
-Monitor with hopeful renal function recovery
#History of kidney stone
- CT abdomen pelvis showing right upper pole kidney, follows with urology
- Potassium citrate to be held
#Rheumatoid arthritis
- Significant arthropathy of hand and have difficulty doing fine motor activity
- On Plaquenil to be continued
-F/u Rheum and Ortho outpt
Full code
Anticipated Discharge: 24 - 48 hours
Subjective/Interval History
-
Date of Service: January 19, 2025
urinating much more today
Objective Data
-
Labs:
Laboratory Results
01/19/25
07:48
WBC 7.8
Hgb 10.9 L
Hct 33.8 L
Plt Count 120 L
Sodium 132 L
Potassium 4.0
Chloride 95 L
Carbon Dioxide 27
BUN 60 H
Creatinine 3.2 H
Glucose 96
Calcium 9.1
Total Bilirubin 0.9
AST 29
ALT 21
Alkaline Phosphatase 61
Vital Signs:
Vital Signs
Temp Pulse Resp BP Pulse Ox
97.9 F 91 18 115/71 98
01/19/25 08:17 01/19/25 09:13 01/19/25 08:17 01/19/25 09:13 01/19/25 08:17
I&O
01/18/25 01/19/25 01/20/25
06:59 06:59 06:59
Intake Total 3680 / 3680 1320 / 1320
Output Total 500 / 500
Balance 3680 / 3680 820 / 820
Review of Systems
-
Respiratory: Reports No Symptoms
Cardiac: Reports No Symptoms
Abdomen/GI: Reports No Symptoms
Data Reviewed
-
CT Scan: Report Reviewed by me
Labs: Labs Reviewed by me
--- NOTE | 2025-01-19 16:25 | W.PN.NEPH.PH ---
Today's Communication / Plan
-
follow labs
titrate down midodirne , follow orthostatics
Assessment/Plan
-
Assessment
CRYSTAL
CKD 3A, 1.1
Uric acid nephrolithiasis with left staghorn calculus
Atrophic right kidney
Hypertension
Hypotension
Back pain
Lower extremity neuropathy
rheumatoid arthritis
Metabolic acidosis
Hyperkalemia
h/o gastric lap band
Plan
CRYSTAL-possible TACHO and prerenal, U na low
UTI sample, no symp. U PCR only 0.2
CT abd with out hydro, known atrophic right kidney , no change in left k stone
cr improving slowly from peak, monitor UOP-subjectively increasing, PVR 33cc
Hypotension -good response to ACTH test , echo normal EF
titrate down midodrine as able and hold ACEI
pt reports having >20lbs wt loss in last 2m with controlling diet could also contributing some of the low BP
hyponatremia-monitor off IVF , encourage solute intake
-
-
Date of Service: January 19, 2025
CC / HPI / ROS
-
Chief Complaint:
CRYSTAL
History of Present Illness:
cr down to 3.2 from peak 3.5, BP stable on midodirne
no fever
hb stable at 10.9, plt 120 in=mproving
Review of Systems:
no cp or sob at rest
no n/v, c/o dizziness thinks related from midodrine
has h/o lap band so can not take lerge amount of food or liquids
Labs
-
Labs:
WBC 7.8 10^3/uL (4.8-10.8) 01/19/25 07:48
RBC 3.75 10^6/uL (4.20-5.40) L 01/19/25 07:48
Hgb 10.9 g/dL (12.0-16.0) L 01/19/25 07:48
Hct 33.8 % (37.0-47.0) L 01/19/25 07:48
Plt Count 120 10^3/uL (130-400) L 01/19/25 07:48
Sodium 132 mmol/L (135-145) L 01/19/25 07:48
Potassium 4.0 mmol/L (3.5-5.1) 01/19/25 07:48
Chloride 95 mmol/L (98-107) L 01/19/25 07:48
Carbon Dioxide 27 mmol/L (22-30) 01/19/25 07:48
BUN 60 mg/dl (7-17) H 01/19/25 07:48
Creatinine 3.2 mg/dL (0.6-1.0) H 01/19/25 07:48
eGFR 14.73 01/19/25 07:48
Glucose 96 mg/dl (70-99) 01/19/25 07:48
Calcium 9.1 mg/dl (8.4-10.2) 01/19/25 07:48
Albumin 4.0 g/dl (3.5-5.0) 01/19/25 07:48
Physical Exam
-
Vital Signs:
Vital Signs
Temp Pulse Resp BP Pulse Ox
97.9 F 91 18 115/71 98
01/19/25 08:17 01/19/25 09:13 01/19/25 08:17 01/19/25 09:13 01/19/25 08:17
Cardiovascular:: Regular rate and rhythm
Respiratory:: Bilateral: CTA
Lung Excursion:: Normal
Abdomen:: Nontender and Soft
Extremity Edema:: +1: Bilateral:
Bowser Catheter: No
[2025-01-19] MEDS: LOVENOX 30 MG SC (16:53)
[2025-01-19 17:03] VITALS: BP 117/40
[2025-01-19 23:01] VITALS: BP 118/73
[2025-01-20] MEDS: TUMS CHEWABLE TABLET 400 MG PO (02:42)
[2025-01-20] MEDS: TYLENOL 650 MG PO ×2 (04:14→16:00)
[2025-01-20 07:30] VITALS: BP 108/52
[2025-01-20 07:56] LABS: Hematocrit 30.8 % (37.0-47.0); Hemoglobin 10.2 g/dL (12.0-16.0); Mean Corp Hgb Conc. 33.1 g/dL (33.0-37.0); Mean Corpuscular Volume 88.5 fL (81.0-99.0); Platelet Count 102 10^3/uL (130-400); Red Cell Dist. Width 14.1 % (11.5-14.5)
[2025-01-20 08:28] LABS: ALT (SGPT) 25 U/L (0-35); AST (SGOT) 31 U/L (14-36); Albumin 3.7 g/dl (3.5-5.0); Alkaline Phosphatase 57 U/L (38-126); Blood Urea Nitrogen 60 mg/dl (7-17); Calcium 9.1 mg/dl (8.4-10.2); Carbon Dioxide 28 mmol/L (22-30); Chloride 98 mmol/L (98-107); Estimated Creatinine Clearance 21 ml/min; Glucose 94 mg/dl (70-99); Potassium 3.8 mmol/L (3.5-5.1); Sodium 132 mmol/L (135-145); Total Protein 6.3 g/dl (6.3-8.2); eGFR 17.29
[2025-01-20] MEDS: BenGay-Like 1 APPLIC TOPICAL ×3 (10:04→21:17)
[2025-01-20] MEDS: DITROPAN 15 MG PO (10:06)
[2025-01-20] MEDS: LIPITOR 10 MG PO (10:07)
[2025-01-20] MEDS: PLAQUENIL 200 MG PO ×2 (10:07→19:40)
[2025-01-20 11:46] VITALS: BP 134/85; PULSE 85; O2SAT 99
[2025-01-20 11:47] VITALS: BP 134/85; PULSE 76; O2SAT 99
[2025-01-20 11:54] VITALS: BP 122/87; BP 126/75; BP 135/85; PULSE 106; PULSE 109; PULSE 84
--- NOTE | 2025-01-20 13:50 | CM ---
CM reviewed chart, patient seen bedside.
CM discussed [facility] accept patient tomorrow, will require insurance auth.
Patient reports she did well with therapy today, would like to decide tomorrow if she wants to go to SNF vs home with therapy.
CM will follow up with patient decision tomorrow.
Plan; [facility] vs home with therapy- patient to make decision
--- NOTE | 2025-01-20 14:41 | W.PN.NEPH.PH ---
Today's Communication / Plan
-
follow BMP
Assessment/Plan
-
Assessment
CRYSTAL
CKD 3A, 1.1
Uric acid nephrolithiasis with left staghorn calculus
Atrophic right kidney
Hypertension
Hypotension
Back pain
Lower extremity neuropathy
rheumatoid arthritis
Metabolic acidosis
Hyperkalemia
h/o gastric lap band
Plan
CRYSTAL-likely CN
UTI sample, no symp. U PCR only 0.2
[address] abd with out hydro, known atrophic right kidney , no change in left k stone
titrate down midodrine as able and hold ACEI
follow BMP
-
-
Date of Service: January 20, 2025
CC / HPI / ROS
-
Chief Complaint:
CRYSTAL
History of Present Illness:
cr down to 2.8 from peak 3.5
BP stable on midodrine
no fever
hb stable at 10.2
Review of Systems:
no cp or sob at rest
no n/v
Labs
-
Labs:
WBC 6.1 10^3/uL (4.8-10.8) 01/20/25 07:28
RBC 3.48 10^6/uL (4.20-5.40) L 01/20/25 07:28
Hgb 10.2 g/dL (12.0-16.0) L 01/20/25 07:28
Hct 30.8 % (37.0-47.0) L 01/20/25 07:28
Plt Count 102 10^3/uL (130-400) L 01/20/25 07:28
Sodium 132 mmol/L (135-145) L 01/20/25 07:28
Potassium 3.8 mmol/L (3.5-5.1) 01/20/25 07:28
Chloride 98 mmol/L (98-107) 01/20/25 07:28
Carbon Dioxide 28 mmol/L (22-30) 01/20/25 07:28
BUN 60 mg/dl (7-17) H 01/20/25 07:28
Creatinine 2.8 mg/dL (0.6-1.0) H 01/20/25 07:28
eGFR 17.29 01/20/25 07:28
Glucose 94 mg/dl (70-99) 01/20/25 07:28
Calcium 9.1 mg/dl (8.4-10.2) 01/20/25 07:28
Albumin 3.7 g/dl (3.5-5.0) 01/20/25 07:28
Physical Exam
-
Vital Signs:
Vital Signs
Temp Pulse Resp BP Pulse Ox
98.2 F 71 16 108/52 97
01/20/25 07:30 01/20/25 07:30 01/20/25 07:30 01/20/25 07:30 01/20/25 07:30
Cardiovascular:: Regular rate and rhythm
Respiratory:: Bilateral: CTA
Lung Excursion:: Normal
Abdomen:: Nontender and Soft
Bowel Sounds:: Normal
Extremity Edema:: None: Bilateral:
--- NOTE | 2025-01-20 15:14 | W.PN.HOSP.TC ---
Today's Communication/Plan
-
monitor Scr
Assessment / Plan
Assessment / Plan
CTA a/p with LE runoff
1. SEVERE DISCOGENIC DEGENERATIVE DISEASE at L2/L3, L3/L4, and L5/S1.
2. Previous posterior decompression and bilateral posterior osseous fusion/instrumentation at L4/L5.
3. SEVERE CHRONIC ASYMMETRIC ATROPHY of the RIGHT KIDNEY suggesting chronic ischemia.
4. Bilateral adrenal adenomas.
5. Small hiatal hernia.
6. Laparoscopic gastric band and IVC filter in place.
7. Severe diverticulosis in the sigmoid colon.
8. Large amount of fecal material in the rectum.
9. Severe atrophy of the muscles of the right lower leg and foot.
10. Bilateral total hip arthroplasties in place.
11. Left total knee arthroplasty in place.
ABDOMINAL AORTA:
1. COMPLETE CHRONIC OCCLUSION of the RIGHT RENAL ARTERY with severe right renal ischemia. Severe chronic right renal atrophy.
2. Minimal atherosclerotic plaque in the abdominal aorta.
RIGHT LOWER EXTREMITY:
1. SEVERE INFRAPOPLITEAL ATHEROSCLEROTIC DISEASE. Occlusion of the anterior tibial, posterior tibial, and peroneal arteries in the mid lower leg without evidence for arterial runoff to the level of the right ankle or foot.
2. No CTA evidence for stenosis or occlusion in the right iliac, femoral, or popliteal arteries.
LEFT LOWER EXTREMITY:
1. SEVERE INFRAPOPLITEAL ATHEROSCLEROTIC DISEASE with three-vessel runoff to the level of the left ankle, but not into the left foot.
2. No CTA evidence for flow-limiting stenosis or occlusion in the left iliac, femoral, or popliteal arteries.

#Acute kidney injury on CKD stage IIIA
#Right atrophic kidney
#Acute Metabolic Acidosis
- Baseline creatinine 1.1 with GFR of 45+ on outpatient labs
-Likely ATN 2/2 to TACHO
--Improved
- cr peaked at 3.3 - ctm - 2.8 today
- CT abdomen pelvis did not show any new structural issues, showed known right atrophic kidney.
- Possibly combination of lisinopril and Hypotension related. Clinically unclear why patient have Hypotension. No clear signs of infection. No signs of overt volume depletion
-S/p Bicarb
-Holding ACEI indefinitely
-Renal consulted
#Hyperkalemia - resolved
- Mild and likely driven by CRYSTAL with added potassium citrate use
- Hold IVETH/potassium supplement and monitor potassium post IV hydration
#Hyponatremia
-likely related to voume overload now that not able to urinate
- Monitor with hopeful improvement in renal function
#Lower extremity discoloration
- CT abdomen pelvis done for concern of acute limb threatening ischemia, infrapopliteal vasculature was poorly visualized likely from hypoperfusion.
- Vascular surgery signed off and no further imaging warranted
#Sciatica
- Patient got IV Decadron 10 mg in ER, hold further steroid
- Maintain on oral pain medication
- PT OT evaluation
-F/u Ortho spine outpatient; patient cannot tolerate MRI here and will need open MRI
#Hypotension
- Got IV fluid and ER and improved although blood pressure soft again in the night
- Continue holding blood pressure medication
- F/u ECHO with LE edema as well: LVEF 60-65; mild aortic and mitral regurg
#LE Edema
-likely 2/2 to CRYSTAL
-ECHO - EF WNL
-Monitor with hopeful renal function recovery
#History of kidney stone
- CT abdomen pelvis showing right upper pole kidney, follows with urology
- Potassium citrate to be held
#Rheumatoid arthritis
- Significant arthropathy of hand and have difficulty doing fine motor activity
- On Plaquenil to be continued
-F/u Rheum and Ortho outpt
Full code
Anticipated Discharge: 24 - 48 hours
Subjective/Interval History
-
Date of Service: January 20, 2025
No acute events overnight
Objective Data
-
Labs:
Laboratory Results
01/20/25
07:28
WBC 6.1
Hgb 10.2 L
Hct 30.8 L
Plt Count 102 L
Sodium 132 L
Potassium 3.8
Chloride 98
Carbon Dioxide 28
BUN 60 H
Creatinine 2.8 H
Glucose 94
Calcium 9.1
Total Bilirubin 0.9
AST 31
ALT 25
Alkaline Phosphatase 57
Vital Signs:
Vital Signs
Temp Pulse Resp BP Pulse Ox
98.2 F 71 16 108/52 97
01/20/25 07:30 01/20/25 07:30 01/20/25 07:30 01/20/25 07:30 01/20/25 07:30
I&O
01/19/25 01/20/25 01/21/25
06:59 06:59 06:59
Intake Total 1320 / 1320 480 / 480
Output Total 500 / 500
Balance 820 / 820 480 / 480
Review of Systems
-
Respiratory: Reports No Symptoms
Cardiac: Reports No Symptoms
Abdomen/GI: Reports No Symptoms
Physical Exam
-
General: No Apparent Distress and Comfortable
HEENT: Negative Oxygen
Musculoskeletal: Other (Bilateral lower extremity varicose vein); Negative Edema, Right Lower Extrem or Edema, Left Lower Extrem
Neuro: Awake, Alert, Oriented, No Motor Deficits and Nonfocal/Grossly Intact
Psych: Calm
Data Reviewed
-
CT Scan: Report Reviewed by me
Labs: Labs Reviewed by me
[2025-01-20 15:30] VITALS: BP 109/47
[2025-01-20] MEDS: ROXICODONE 5 MG PO (16:04)
[2025-01-20] MEDS: LOVENOX 30 MG SC (17:57)
[2025-01-20] MEDS: BenGay-Like TOPICAL (17:58)
[2025-01-20 23:00] VITALS: BP 108/77
[2025-01-21] MEDS: TUMS CHEWABLE TABLET 400 MG PO (01:07)
[2025-01-21] MEDS: TYLENOL 650 MG PO ×3 (01:08→22:35)
[2025-01-21 07:30] VITALS: BP 125/59; BP 138/54; BP 156/70; PULSE 103; PULSE 104; PULSE 81
[2025-01-21] MEDS: LIPITOR 10 MG PO (07:46)
[2025-01-21] MEDS: DITROPAN 15 MG PO (07:46)
[2025-01-21] MEDS: PLAQUENIL 200 MG PO ×2 (07:46→19:57)
[2025-01-21] MEDS: BenGay-Like 1 APPLIC TOPICAL ×3 (07:46→22:24)
[2025-01-21 08:16] LABS: Hematocrit 30.8 % (37.0-47.0); Hemoglobin 10.3 g/dL (12.0-16.0); Mean Corp Hgb Conc. 33.4 g/dL (33.0-37.0); Mean Corpuscular Volume 90.3 fL (81.0-99.0); Platelet Count 115 10^3/uL (130-400); Red Cell Dist. Width 13.9 % (11.5-14.5)
[2025-01-21 08:46] LABS: ALT (SGPT) 31 U/L (0-35); AST (SGOT) 36 U/L (14-36); Albumin 3.8 g/dl (3.5-5.0); Alkaline Phosphatase 64 U/L (38-126); Blood Urea Nitrogen 52 mg/dl (7-17); Calcium 9.1 mg/dl (8.4-10.2); Carbon Dioxide 25 mmol/L (22-30); Chloride 102 mmol/L (98-107); Estimated Creatinine Clearance 24 ml/min; Glucose 97 mg/dl (70-99); Potassium 3.8 mmol/L (3.5-5.1); Sodium 134 mmol/L (135-145); Total Protein 6.5 g/dl (6.3-8.2); eGFR 19.81
--- NOTE | 2025-01-21 10:46 | CM ---
CM reviewed chart, patient seen bedside.
Discussed discharge plan for SNF vs home, patient reports she would like to go home. Patient feels she needs one more day in hospital- will discuss with Hospitalist.
Update to Lucrecia maurisio [facility].
CM will continue to follow for all discharge planning needs.
Plan; likely home, patient not interested in SNF at this time.
[2025-01-21] MEDS: BenGay-Like TOPICAL (13:11)
--- NOTE | 2025-01-21 13:48 | W.PN.HOSP.TC ---
Today's Communication/Plan
-
LE dopplers
monitor renal function
Assessment / Plan
Assessment / Plan
CTA a/p with LE runoff
1. SEVERE DISCOGENIC DEGENERATIVE DISEASE at L2/L3, L3/L4, and L5/S1.
2. Previous posterior decompression and bilateral posterior osseous fusion/instrumentation at L4/L5.
3. SEVERE CHRONIC ASYMMETRIC ATROPHY of the RIGHT KIDNEY suggesting chronic ischemia.
4. Bilateral adrenal adenomas.
5. Small hiatal hernia.
6. Laparoscopic gastric band and IVC filter in place.
7. Severe diverticulosis in the sigmoid colon.
8. Large amount of fecal material in the rectum.
9. Severe atrophy of the muscles of the right lower leg and foot.
10. Bilateral total hip arthroplasties in place.
11. Left total knee arthroplasty in place.
ABDOMINAL AORTA:
1. COMPLETE CHRONIC OCCLUSION of the RIGHT RENAL ARTERY with severe right renal ischemia. Severe chronic right renal atrophy.
2. Minimal atherosclerotic plaque in the abdominal aorta.
RIGHT LOWER EXTREMITY:
1. SEVERE INFRAPOPLITEAL ATHEROSCLEROTIC DISEASE. Occlusion of the anterior tibial, posterior tibial, and peroneal arteries in the mid lower leg without evidence for arterial runoff to the level of the right ankle or foot.
2. No CTA evidence for stenosis or occlusion in the right iliac, femoral, or popliteal arteries.
LEFT LOWER EXTREMITY:
1. SEVERE INFRAPOPLITEAL ATHEROSCLEROTIC DISEASE with three-vessel runoff to the level of the left ankle, but not into the left foot.
2. No CTA evidence for flow-limiting stenosis or occlusion in the left iliac, femoral, or popliteal arteries.

#Acute kidney injury on CKD stage IIIA
#Right atrophic kidney
#Acute Metabolic Acidosis
- Baseline creatinine 1.1 with GFR of 45+ on outpatient labs
-Likely ATN 2/2 to TACHO
--Improved
- cr peaked at 3.3 - ctm - 2.5 today
- CT abdomen pelvis did not show any new structural issues, showed known right atrophic kidney.
- Possibly combination of lisinopril and Hypotension related. Clinically unclear why patient have Hypotension. No clear signs of infection. No signs of overt volume depletion
-S/p Bicarb
-Holding ACEI indefinitely
-Renal consulted
#Hyperkalemia - resolved
- Mild and likely driven by CRYSTAL with added potassium citrate use
- Hold IVETH/potassium supplement and monitor potassium post IV hydration
#Hyponatremia, improving
-likely related to voume overload now that not able to urinate
- Monitor with hopeful improvement in renal function
#Lower extremity discoloration - Improved!
- CT abdomen pelvis done for concern of acute limb threatening ischemia, infrapopliteal vasculature was poorly visualized likely from hypoperfusion.
-suspect this is due to contrast timing, cardiac dysfunction limiting contrast progression, or hypoperfusion secondary to the hypotension she had upon admission
- Vascular surgery signed off and no further imaging warranted
#Sciatica
- Patient got IV Decadron 10 mg in ER, hold further steroid
- Maintain on oral pain medication
- PT OT evaluation
-F/u Ortho spine outpatient; patient cannot tolerate MRI here and will need open MRI
#Hypotension, resolved
- Got IV fluid and ER and improved although blood pressure soft again in the night
- Continue holding blood pressure medication
- F/u ECHO with LE edema as well: LVEF 60-65; mild aortic and mitral regurg
#LE Edema
-likely 2/2 to CRYSTAL
-ECHO - EF WNL
-Monitor with hopeful renal function recovery
-f/u LE Dopplers
#History of kidney stone
- CT abdomen pelvis showing right upper pole kidney, follows with urology
- Potassium citrate to be held
#Rheumatoid arthritis
- Significant arthropathy of hand and have difficulty doing fine motor activity
- On Plaquenil to be continued
-F/u Rheum and Ortho outpt
Full code
Anticipated Discharge: 24 - 48 hours
Subjective/Interval History
-
Date of Service: January 21, 2025
no acute events overnight
Objective Data
-
Labs:
Laboratory Results
01/21/25
06:58
WBC 6.4
Hgb 10.3 L
Hct 30.8 L
Plt Count 115 L
Sodium 134 L
Potassium 3.8
Chloride 102
Carbon Dioxide 25
BUN 52 H
Creatinine 2.5 H
Glucose 97
Calcium 9.1
Total Bilirubin 0.8
AST 36
ALT 31
Alkaline Phosphatase 64
Vital Signs:
Vital Signs
Temp Pulse Resp BP Pulse Ox
98.1 F 81 16 138/54 97
01/21/25 07:30 01/21/25 07:30 01/21/25 07:30 01/21/25 07:30 01/21/25 07:30
I&O
01/20/25 01/21/25 01/22/25
06:59 06:59 06:59
Intake Total 480 / 480 1200 / 1200
Balance 480 / 480 1200 / 1200
Review of Systems
-
History Source: Patient
All other systems: Not reviewed unless documented
Data Reviewed
-
CT Scan: Report Reviewed by me
Labs: Labs Reviewed by me
--- NOTE | 2025-01-21 14:57 | W.PN.NEPH.PH ---
Today's Communication / Plan
-
follow BMP
Assessment/Plan
-
Assessment
CRYSTAL
CKD 3A, 1.1
Uric acid nephrolithiasis with left staghorn calculus
Atrophic right kidney
Hypertension
Hypotension
Back pain
Lower extremity neuropathy
rheumatoid arthritis
Metabolic acidosis
Hyperkalemia
h/o gastric lap band
Plan
CRYSTAL-likely CN
OAC for DVT
titrate down midodrine
follow BMP
-
-
Date of Service: January 21, 2025
CC / HPI / ROS
-
Chief Complaint:
CRYSTAL
History of Present Illness:
cr down to 2.5 from peak 3.5
BP stable on midodrine
no fever
LE pain-left CFV/infrapop DVT
Review of Systems:
no cp or sob at rest
no n/v
Labs
-
Labs:
Sodium 134 mmol/L (135-145) L 01/21/25 06:58
Potassium 3.8 mmol/L (3.5-5.1) 01/21/25 06:58
Chloride 102 mmol/L (98-107) 01/21/25 06:58
Carbon Dioxide 25 mmol/L (22-30) 01/21/25 06:58
BUN 52 mg/dl (7-17) H 01/21/25 06:58
Creatinine 2.5 mg/dL (0.6-1.0) H 01/21/25 06:58
eGFR 19.81 01/21/25 06:58
Glucose 97 mg/dl (70-99) 01/21/25 06:58
Calcium 9.1 mg/dl (8.4-10.2) 01/21/25 06:58
Albumin 3.8 g/dl (3.5-5.0) 01/21/25 06:58
Physical Exam
-
Vital Signs:
Vital Signs
Temp Pulse Resp BP Pulse Ox
98.1 F 81 16 138/54 97
01/21/25 07:30 01/21/25 07:30 01/21/25 07:30 01/21/25 07:30 01/21/25 07:30
Cardiovascular:: Regular rate and rhythm
Respiratory:: Bilateral: Coarse
Lung Excursion:: Normal
Abdomen:: Nontender and Soft
Bowel Sounds:: Normal
Extremity Edema:: +1: Bilateral:
[2025-01-21 15:48] LABS: Hematocrit 31.2 % (37.0-47.0); Hemoglobin 10.4 g/dL (12.0-16.0); Mean Corp Hgb Conc. 33.3 g/dL (33.0-37.0); Mean Corpuscular Volume 89.1 fL (81.0-99.0); Platelet Count 120 10^3/uL (130-400); Red Cell Dist. Width 13.9 % (11.5-14.5)
[2025-01-21 15:59] LABS: APTT 23.5 Sec (23.4-35.0)
[2025-01-21] MEDS: HEPARIN 25000 UNITS/250 ML IV (16:07)
--- NOTE | 2025-01-21 16:23 | W.PN.VS ---
Addendum entered and electronically signed by Temo Huston MD 01/21/25 16:35:
Seen and examined with ELLEN Fontaine. Reviewed ultrasound imaging and prior CT angiogram. Patient's biggest complaint is numbness in both legs but more so on the left leg when she gets up and walk. She notes she has had chronic lower back issues with
sciatic pain. Some swelling in the left leg. History of IVC filter in 2004 or 2005 places [facility] at the time of craniotomy.
Asked to reevaluate based on finding of DVT on ultrasound. On exam/she is in no acute distress. Breathing is unlabored. Abdomen is soft. Thigh and calf bilaterally are soft. Left thigh and calf are mildly edematous compared to the right side
but no phlegmasia. Compartments all soft.
Plan/acute DVT left lower extremity. Some common femoral vein involvement. Ideally would favor CT venogram to assess the pelvic veins and the IVC/filter. However she has chronic renal insufficiency and therefore would forego that. Discussed with
her that in some cases of iliofemoral DVTs we would recommend invasive catheter-based therapies to reduce clot burden to mitigate incidence and symptoms of postthrombotic syndrome. However, given her renal dysfunction, would favor not being that
aggressive especially given that her symptoms are mild. Any catheter-based procedure would involve the administration of IV contrast which runs the risk of contrast-induced nephropathy. She is in agreement with proceeding with conservative
measures. Recommend anticoagulation and compression to the leg. (Rudolph bandage or compression stocking). Will sign off. Please call with questions.
Original Note:
Today's Communication / Plan
-
See below.
Assessment/Plan
-
Assessment: 74 female with extensive LLE DVT on heparin infusion.
Plan:
Challenging situation given patient has CRYSTAL and kidney artery occlusion, any further workup including surgical options would require contrast dye. Will defer to attending for official surgical plan.
In the meantime patient should have left lower extremity Rudolph wrapped for mild compression for medical management
Agree with continuing heparin infusion
Subjective Data
-
Date of Service: January 21, 2025
Please see prior consult on 01/16/2025, we have been asked to reevaluate patient regarding new finding of left lower extremity DVT. Per patient she noticed increased swelling over the past 1 to 2 days prompting ultrasound, which resulted with
'nonocclusive thrombus in the common femoral vein. There is occlusive thrombus within the greater saphenous vein, echogenic. There is echogenic occlusive thrombus in the femoral vein and the popliteal vein. There is occlusive thrombus in the
peroneal veins and posterior tibial veins. There is sluggish flow within the left profunda femoral vein.' Patient denies any increased pain to left lower extremity but does note continued numbness at the posterior left thigh and down the leg. She
does note that she has a significant past medical history for chronic back pain and sciatica. She endorses that she had a craniotomy in 2005 which led to a prophylactic IVC filter placement that has not been removed. She denies ever receiving a
diagnosis of DVT or PE in the past.
Objective Data
-
Vital Signs
Temp Pulse Resp BP Pulse Ox
98.1 F 81 16 138/54 97
01/21/25 07:30 01/21/25 07:30 01/21/25 07:30 01/21/25 07:30 01/21/25 07:30
Intake and Output
01/20/25 01/21/25 01/22/25
06:59 06:59 06:59
Intake Total 480 / 480 1200 / 1200
Balance 480 / 480 1200 / 1200
Intake:
Oral fluids 480 / 480 1200 / 1200
Other:
Number of approximated MODERATE 3
amounts of urine
Number of approximated LARGE 3
amounts of urine
Lab Results
01/21/25 15:39
01/21/25 06:58
Calcium 9.1 mg/dl (8.4-10.2) 01/21/25 06:58
Total Bilirubin 0.8 mg/dl (0.2-1.3) 01/21/25 06:58
AST 36 U/L (14-36) 01/21/25 06:58
ALT 31 U/L (0-35) 01/21/25 06:58
Alkaline Phosphatase 64 U/L (38-126) 01/21/25 06:58
Total Protein 6.5 g/dl (6.3-8.2) 01/21/25 06:58
Albumin 3.8 g/dl (3.5-5.0) 01/21/25 06:58
Physical Exam
-
No apparent distress, resting bed comfortably
No tachycardia
No dyspnea on room air
Abdomen rotund, nondistended, nontender
Left lower extremity with +2 edema, all compartments soft, foot warm
[2025-01-21 22:54] LABS: APTT 123.4 Sec (23.4-35.0)
[2025-01-21 23:21] VITALS: BP 127/65
[2025-01-22] MEDS: TUMS CHEWABLE TABLET 400 MG PO (05:14)
[2025-01-22] MEDS: HEPARIN 25000 UNITS/250 ML IV (05:18)
[2025-01-22 06:06] LABS: Hematocrit 30.2 % (37.0-47.0); Hemoglobin 10.2 g/dL (12.0-16.0); Mean Corp Hgb Conc. 33.8 g/dL (33.0-37.0); Mean Corpuscular Volume 90.4 fL (81.0-99.0); Platelet Count 128 10^3/uL (130-400); Red Cell Dist. Width 13.9 % (11.5-14.5)
[2025-01-22 07:12] LABS: APTT 196 Sec (23.4-35.0)
[2025-01-22 07:25] VITALS: BP 140/71
[2025-01-22] MEDS: BenGay-Like 1 APPLIC TOPICAL ×2 (07:40→12:57)
[2025-01-22] MEDS: DITROPAN 15 MG PO (07:41)
[2025-01-22] MEDS: LIPITOR 10 MG PO (07:42)
[2025-01-22] MEDS: PLAQUENIL 200 MG PO (07:42)
[2025-01-22 07:52] LABS: ALT (SGPT) 40 U/L (0-35); AST (SGOT) 42 U/L (14-36); Albumin 3.7 g/dl (3.5-5.0); Alkaline Phosphatase 65 U/L (38-126); Blood Urea Nitrogen 49 mg/dl (7-17); Calcium 9.1 mg/dl (8.4-10.2); Carbon Dioxide 28 mmol/L (22-30); Chloride 101 mmol/L (98-107); Estimated Creatinine Clearance 30 ml/min; Glucose 101 mg/dl (70-99); Potassium 4.0 mmol/L (3.5-5.1); Sodium 135 mmol/L (135-145); Total Protein 6.4 g/dl (6.3-8.2); eGFR 25.89
--- NOTE | 2025-01-22 10:32 | W.PN.NEPH.PH ---
Today's Communication / Plan
-
ok for d/c per renal
Assessment/Plan
-
Assessment
CRYSTAL
CKD 3A, 1.1
Uric acid nephrolithiasis with left staghorn calculus
Atrophic right kidney
Hypertension
Hypotension
Back pain
Lower extremity neuropathy
rheumatoid arthritis
Metabolic acidosis
Hyperkalemia
h/o gastric lap band
Plan
CRYSTAL-likely TACHO
cr improving to 2
d/c midodrine as BP seem stable
do not resume ACEI yet
DVT no intervention per vasc
if d/c follow BMP on Saturday
f/u nephro
d/w pt and in detail
d/w primary
-
-
Date of Service: January 22, 2025
CC / HPI / ROS
-
Chief Complaint:
CRYSTAL
History of Present Illness:
cr down to 2 from peak 3.5
BP stable on midodrine
no fever
LE pain-left CFV/infrapop DVT
Review of Systems:
no cp or sob at rest
no n/v
Labs
-
Labs:
WBC 6.4 10^3/uL (4.8-10.8) 01/22/25 05:56
RBC 3.34 10^6/uL (4.20-5.40) L 01/22/25 05:56
Hgb 10.2 g/dL (12.0-16.0) L 01/22/25 05:56
Hct 30.2 % (37.0-47.0) L 01/22/25 05:56
Plt Count 128 10^3/uL (130-400) L 01/22/25 05:56
Sodium 135 mmol/L (135-145) 01/22/25 05:56
Potassium 4.0 mmol/L (3.5-5.1) 01/22/25 05:56
Chloride 101 mmol/L (98-107) 01/22/25 05:56
Carbon Dioxide 28 mmol/L (22-30) 01/22/25 05:56
BUN 49 mg/dl (7-17) H 01/22/25 05:56
Creatinine 2.0 mg/dL (0.6-1.0) H 01/22/25 05:56
eGFR 25.89 01/22/25 05:56
Glucose 101 mg/dl (70-99) H 01/22/25 05:56
Calcium 9.1 mg/dl (8.4-10.2) 01/22/25 05:56
Albumin 3.7 g/dl (3.5-5.0) 01/22/25 05:56
Physical Exam
-
Vital Signs:
Vital Signs
Temp Pulse Resp BP Pulse Ox
97.8 F 84 18 140/71 99
01/22/25 07:25 01/22/25 07:25 01/22/25 07:25 01/22/25 07:25 01/22/25 07:25
Cardiovascular:: Regular rate and rhythm
Respiratory:: Bilateral: CTA (decreased BS)
Lung Excursion:: Normal
Abdomen:: Nontender and Soft
Bowel Sounds:: Normal
Extremity Edema:: +1: Right: and +3: Left:
Bowser Catheter: No
--- NOTE | 2025-01-22 12:47 | CM ---
CM reviewed chart, patient seen bedside, for d/c today.
Call to patients pharmacy to obtain pricing for Eliquis- per Pharmacist- one month supply $140, may go down if patient has met deductible. Patient aware, will provide coupon.
Patient does not want home therapy or VN- reports she has had it in the past and knows what exercises to do.
IMM verbally reviewed, provided to patient, placed in chart.
Patient reports she will call her daughter for transport home.
CM will continue to follow.
Plan; home no needs, declining VN
--- NOTE | 2025-01-22 14:29 | W.PN.HOSP.TC ---
Addendum entered and electronically signed by Oswaldo Campbell MD 01/22/25 16:48:
[id number]
Original Note:
Today's Communication/Plan
-
DC on Eliquis
stop midodrine, hold ACEI
F/u BMP on Saturday
JEFF Wraps, compression stockings
F/u PCP, Nephro, Ortho, Rheum, hematology outpt
Assessment / Plan
Assessment / Plan
CTA a/p with LE runoff
1. SEVERE DISCOGENIC DEGENERATIVE DISEASE at L2/L3, L3/L4, and L5/S1.
2. Previous posterior decompression and bilateral posterior osseous fusion/instrumentation at L4/L5.
3. SEVERE CHRONIC ASYMMETRIC ATROPHY of the RIGHT KIDNEY suggesting chronic ischemia.
4. Bilateral adrenal adenomas.
5. Small hiatal hernia.
6. Laparoscopic gastric band and IVC filter in place.
7. Severe diverticulosis in the sigmoid colon.
8. Large amount of fecal material in the rectum.
9. Severe atrophy of the muscles of the right lower leg and foot.
10. Bilateral total hip arthroplasties in place.
11. Left total knee arthroplasty in place.
ABDOMINAL AORTA:
1. COMPLETE CHRONIC OCCLUSION of the RIGHT RENAL ARTERY with severe right renal ischemia. Severe chronic right renal atrophy.
2. Minimal atherosclerotic plaque in the abdominal aorta.
RIGHT LOWER EXTREMITY:
1. SEVERE INFRAPOPLITEAL ATHEROSCLEROTIC DISEASE. Occlusion of the anterior tibial, posterior tibial, and peroneal arteries in the mid lower leg without evidence for arterial runoff to the level of the right ankle or foot.
2. No CTA evidence for stenosis or occlusion in the right iliac, femoral, or popliteal arteries.
LEFT LOWER EXTREMITY:
1. SEVERE INFRAPOPLITEAL ATHEROSCLEROTIC DISEASE with three-vessel runoff to the level of the left ankle, but not into the left foot.
2. No CTA evidence for flow-limiting stenosis or occlusion in the left iliac, femoral, or popliteal arteries.

#Acute kidney injury on CKD stage IIIA
#Right atrophic kidney
#Acute Metabolic Acidosis
- Baseline creatinine 1.1 with GFR of 45+ on outpatient labs
-Likely ATN 2/2 to TACHO
--Improved
- cr peaked at 3.3 - ctm - 2 today - f/u bmp on 01/25 with nephro/pcp
- CT abdomen pelvis did not show any new structural issues, showed known right atrophic kidney.
- Possibly combination of lisinopril and Hypotension related. Clinically unclear why patient have Hypotension. No clear signs of infection. No signs of overt volume depletion
-S/p Bicarb
-Holding ACEI indefinitely
-Renal consulted
#Hyperkalemia - resolved
- Mild and likely driven by CRYSTAL with added potassium citrate use
- Hold JEFF/potassium supplement and monitor potassium post IV hydration
#Hyponatremia, improving
-likely related to voume overload now that not able to urinate
- Monitor with hopeful improvement in renal function
-F/u bmp outpt
#Lower extremity discoloration - Improved!
- CT abdomen pelvis done for concern of acute limb threatening ischemia, infrapopliteal vasculature was poorly visualized likely from hypoperfusion.
-suspect this is due to contrast timing, cardiac dysfunction limiting contrast progression, or hypoperfusion secondary to the hypotension she had upon admission
- Vascular surgery signed off and no further imaging warranted
-see plan for extensive DVT below
#Sciatica
- Patient got IV Decadron 10 mg in ER, hold further steroid
- Maintain on oral pain medication
- PT OT evaluation
-F/u Ortho spine outpatient; patient cannot tolerate MRI here and will need open MRI
#Hypotension, resolved
- Got IV fluid and ER and improved although blood pressure soft again in the night
- Continue holding blood pressure medication
- F/u ECHO with LE edema as well: LVEF 60-65; mild aortic and mitral regurg
-Stop midodrine
#LE Edema
-likely 2/2 to CRYSTAL + DVT
-ECHO - EF WNL
-Monitor with hopeful renal function recovery
#Left lower extremity acute deep venous thrombosis extending from the infrapopliteal veins to the common femoral vein
-Vascular consulted - agreed on conservative measures
- Anticoagulation, Eliquis on DC
-Jeff wraps, compression stockings
-F/u pcp outpt
-F/u Heme outpt
#History of kidney stone
- CT abdomen pelvis showing right upper pole kidney, follows with urology
- Potassium citrate to be held
#Rheumatoid arthritis
- Significant arthropathy of hand and have difficulty doing fine motor activity
- On Plaquenil to be continued
-F/u Rheum and Ortho outpt
Full code
More than 30 minutes spent in discharge including
Final examination of the patient
Summarizing hospital stay
Instructions for continuing care to all relevant caregivers
Preparation of discharge records, prescriptions, and referral forms
Total time spent (in minutes): 36
Anticipated Discharge: Today
Subjective/Interval History
-
Date of Service: January 22, 2025
No acute events overnight
Objective Data
-
Labs:
Laboratory Results
01/22/25 01/22/25
05:56 14:30
WBC 6.4
Hgb 10.2 L
Hct 30.2 L
Plt Count 128 L
APTT 196 H* Pending
Sodium 135
Potassium 4.0
Chloride 101
Carbon Dioxide 28
BUN 49 H
Creatinine 2.0 H
Glucose 101 H
Calcium 9.1
Total Bilirubin 0.8
AST 42 H
ALT 40 H
Alkaline Phosphatase 65
Vital Signs:
Vital Signs
Temp Pulse Resp BP Pulse Ox
97.8 F 84 18 140/71 99
01/22/25 07:25 01/22/25 07:25 01/22/25 07:25 01/22/25 07:25 01/22/25 07:25
I&O
01/21/25 01/22/25 01/23/25
06:59 06:59 06:59
Intake Total 1200 / 1200 720 / 720
Balance 1200 / 1200 720 / 720
Review of Systems
-
History Source: Patient
All other systems: Not reviewed unless documented
Data Reviewed
-
CT Scan: Report Reviewed by me
Labs: Labs Reviewed by me
--- NOTE | 2025-01-22 14:36 | W.DS.TRANS ---
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
-
Discharge Instructions:
Discharge Diagnosis/Procedures acute DVT left lower extremity
TACHO
#Acute kidney injury on CKD stage IIIA
#Right atrophic kidney
#Acute Metabolic Acidosis
#Hyponatremia, improving
#Hypotension
#Sciatica
Diet Low Cholesterol,Low Fat
Blood Work cbc and bmp on Saturday01/25/25 with PCP,
Nephrology
Instructions:
Stand-Alone Forms:
Changes to Home Medications: Yes
Discharge Medications:
DC Medications w/original date entered in [employer]
acetaminophen 325 mg tablet (Tylenol) 650 mg PO Q6HPRN PRN mild pain 01/16/25
atorvastatin 10 mg tablet (Lipitor) 10 mg PO DAILY High Cholesterol 01/16/25
calcium carbonate (Tums) 200 mg PO QIDPRN PRN gerd 01/16/25
folic acid 1 mg tablet 1 mg PO DAILY Supplement 01/16/25
glucosamine sulf dipot chlr,msm,chond 550 mg-C 30 mg-ozzy 1 mg capsule (Glucosamine Chondroitin) 1 cap PO DAILY Supplement 01/16/25
hydroxychloroquine 200 mg tablet (Plaquenil) 200 mg PO BID ARTHRITIS 01/16/25
oxybutynin chloride 15 mg tablet,extended release 24 hr 15 mg PO DAILY 01/16/25
psyllium 1 packet PO DAILY Constipation 01/16/25
therapeutic multivitamin 1 tab PO DAILY Supplement 01/16/25
apixaban 5 mg (74 tabs) tablets in a dose pack (Eliquis DVT-PE Treat 30D Start) See Rx Instructions PO .COMPLEX #74 ea 01/22/25
Home Medication Changes
apixaban 5 mg (74 tabs) tablets in a dose pack (Eliquis DVT-PE Treat 30D Start) See Rx Instructions PO .COMPLEX #74 ea 01/22/25
Pending Results: No
[2025-01-22] MEDS: ROXICODONE 5 MG PO (14:52)
[2025-01-22 15:13] VITALS: BP 128/69
[2025-01-22 15:23] LABS: APTT 92.4 Sec (23.4-35.0)
== END 2025-01-22 17:51 | disposition home or self-care (01) | DRG 683 ==
LOC: 4 WEST ACU 08:43
PROVIDERS: Internal Medicine; Student in an Organized Health Care Education/Training Program; ADMITTING PHYSICIAN Hospitalist; ATTENDING PHYSICIAN Internal Medicine; CONSULT PHYSICIAN Specialist; EMERGENCY PHYSICIAN Emergency Medicine; FAMILY PHYSICIAN Family Medicine; OTHER PHYSICIAN Surgery
DX: N17.0 Acute kidney failure with tubular necrosis (principal); B19.10 Unspecified viral hepatitis B without hepatic coma; I82.412 Acute embolism and thrombosis of left femoral vein; E87.21 Acute metabolic acidosis; E87.1 Hypo-osmolality and hyponatremia; E78.00 Pure hypercholesterolemia, unspecified; G47.30 Sleep apnea, unspecified; I12.9 Hypertensive chronic kidney disease with stage 1 through stage 4 chronic kidney disease, or unspecified chronic kidney disease; M19.90 Unspecified osteoarthritis, unspecified site; K21.9 Gastro-esophageal reflux disease without esophagitis; G89.29 Other chronic pain; N14.11 Contrast-induced nephropathy; T50.8X5A Adverse effect of diagnostic agents, initial encounter; Y92.239 Unspecified place in hospital as the place of occurrence of the external cause; E87.5 Hyperkalemia; I95.9 Hypotension, unspecified; M54.30 Sciatica, unspecified side; M06.9 Rheumatoid arthritis, unspecified; D35.01 Benign neoplasm of right adrenal gland; N18.31 Chronic kidney disease, stage 3a; D35.02 Benign neoplasm of left adrenal gland; K44.9 Diaphragmatic hernia without obstruction or gangrene; K57.30 Diverticulosis of large intestine without perforation or abscess without bleeding; R73.9 Hyperglycemia, unspecified; E87.70 Fluid overload, unspecified; I87.2 Venous insufficiency (chronic) (peripheral); E86.9 Volume depletion, unspecified; F17.200 Nicotine dependence, unspecified, uncomplicated; Z96.652 Presence of left artificial knee joint; Z96.643 Presence of artificial hip joint, bilateral; Z88.0 Allergy status to penicillin; Z95.828 Presence of other vascular implants and grafts; Z87.442 Personal history of urinary calculi; Z98.1 Arthrodesis status; Z79.899 Other long term (current) drug therapy
CPT/HCPCS: 75635; 80048; 80053; 81003; 81015; 82533; 82570; 82962; 83036; 83935; 84156; 84300; 84443; 84484; 85025; 85027; 85610; 85730; 86850; 86900; 86901; 93005; 93306; 93970; 96361; 96374; 96375; 97116; 97163; 97166; 97530; 97535; 99285; Q9967

== ENCOUNTER 2025-01-27 16:33 | Emergency (ER) | payer OTHER, SELFPAY ==
[2025-01-27 16:37] VITALS: BP 152/63
[2025-01-27 16:52] LABS: Hematocrit 30.9 % (37.0-47.0); Hemoglobin 10.3 g/dL (12.0-16.0); Mean Corp Hgb Conc. 33.3 g/dL (33.0-37.0); Mean Corpuscular Volume 90.9 fL (81.0-99.0); Nucleated Red Blood Cells % 0 %; Platelet Count 286 10^3/uL (130-400); Red Cell Dist. Width 14.1 % (11.5-14.5)
[2025-01-27 17:00] LABS: INR 2.15; PT 23.6 Sec (11.4-14.6)
[2025-01-27 17:01] LABS: APTT 31.9 Sec (23.4-35.0)
[2025-01-27 17:13] LABS: ALT (SGPT) 39 U/L (0-35); AST (SGOT) 40 U/L (14-36); Albumin 4.0 g/dl (3.5-5.0); Alkaline Phosphatase 83 U/L (38-126); Blood Urea Nitrogen 56 mg/dl (7-17); Calcium 10.9 mg/dl (8.4-10.2); Carbon Dioxide 25 mmol/L (22-30); Chloride 99 mmol/L (98-107); Glucose 87 mg/dl (70-99); Potassium 4.9 mmol/L (3.5-5.1); Sodium 132 mmol/L (135-145); Total Protein 6.7 g/dl (6.3-8.2); eGFR 16.58
[2025-01-27 19:46] VITALS: BP 100/68
[2025-01-27 19:47] VITALS: BP 109/84
[2025-01-27 19:51] VITALS: BMI 41.5
--- NOTE | 2025-01-27 20:30 | ED.GENMED ---
History of Present Illness
General
Chief Complaint: DVT/Possible Blood Clot
Time Seen by Provider: 01/27/25 19:47
History of Present Illness
History of Present Illness:
74-year-old female presents the emergency department for evaluation of worsening leg swelling. Recent diagnosis of DVT during an earlier in the month. Patient was seeing her primary care for follow-up she was noted to have lack of pulsation
palpably in the foot and thus sent to the ED. She reports pain when ambulating but denies any chest pain dyspnea
Past History
Past History
ED Past Medical History: HTN, Hypercholesterolemia, Other (OA) and Other (sleep apnea)
Social History
Tobacco: Non-smoker
Living: with family
Review of Systems
Review of Systems
Allergies reviewed?: Yes
All Other Systems: ROS reviewed and negative except as documented in HPI and ROS
Phy Exam
Physical Exam
Physical Exam:
GEN: Well appearing, NAD, WDWN
HEENT: Oral mucosa moist, no scleral icterus
Cardiac: Regular rate
Lung: No respiratory distress, no tachypnea
MSK: Diffuse edema from the thigh down to the lower leg, faint redness with no overt erythema or warmth. Calf compartments are soft x 4, no pain with passive stretch. Left DP and PT pulses are strong by Doppler
Skin: Good color, no pallor or jaundice, no rashes
Neuro: AO x3, moves all extremities freely
Psych: Calm, cooperative
Course
Orders/Labs/Results
Orders:
Orders
01/27/25 16:42
Complete Blood Count/With Diff Urgent
Comprehensive Metabolic Panel Urgent
PT/INR [Prothrombin Time] Urgent
Is patient on Coumadin/Warfarin?: No
Comment: [email or web address]
PTT Urgent
Abnormal Lab Results
01/27/25
16:42
RBC 3.40 L 10^6/uL
(4.20-5.40)
Hgb 10.3 L g/dL
(12.0-16.0)
Hct 30.9 L %
(37.0-47.0)
Abs Immat Gran (auto) 0.1 H 10^3/uL
(0-0.05)
Absolute Lymphs (auto) 0.6 L 10^3/uL
(1.2-3.4)
Absolute Monos (auto) 0.7 H 10^3/uL
(0.1-0.6)
Immature Gran % 0.6 H %
(0-0.5)
Neutrophils % 82.1 H %
(42.2-75.2)
Lymphocytes % 7.6 L %
(20.5-51.1)
PT 23.6 H Sec
(11.4-14.6)
Sodium 132 L mmol/L
(135-145)
BUN 56 H mg/dl
(7-17)
Creatinine 2.9 H mg/dL
(0.6-1.0)
Calcium 10.9 H mg/dl
(8.4-10.2)
AST 40 H U/L
(14-36)
ALT 39 H U/L
(0-35)
01/27/25 16:42
01/27/25 16:42
Vital Signs
Initial and Last Documented VS:
Initial Vital Signs
Temp Pulse Resp BP Pulse Ox
98.2 F 80 16 152/63 98
01/27/25 16:37 01/27/25 16:37 01/27/25 16:37 01/27/25 16:37 01/27/25 16:37
Last Documented Vital Signs
Temp Pulse Resp BP Pulse Ox
98.2 F 72 12 109/84 95
01/27/25 16:37 01/27/25 20:15 01/27/25 20:15 01/27/25 19:47 01/27/25 20:31
MDM/Problems Addressed
MDM/Problems Addressed:
No clinical evidence of arterial compromise. No clinical signs of infectious etiology. No clinical signs of compartment syndrome. Discussed with patient that worsening edema is not uncommon in the case of an extensive DVT and she is on
appropriate anticoagulants at this time
*Pulse Oximetry
SaO2: 95
Oxygen Mode of Delivery: Room air
Patient hypoxic: no
*Critical Care Note
Total Time (30-74mins, 75-104mins- exclusive of procedures): Not Applicable
ED Attending Note
-
Portions of this chart may have been created with voice recognition software.� Occasional wrong word or��sound alike� substitutions may have occurred due to the inherent limitations of voice recognition software.
Discharge Plan
Departure
Patient Disposition: Home (Routine Discharge)
Date of Disposition: 01/27/25
Time of Disposition: 20:31
Patient with high blood pressure during this ER visit?: No
Discharge Problem:
Deep vein thrombosis (DVT) of left lower extremity
Instructions: Deep Vein Thrombosis (Blood Clots in the Legs) (DC)
Prescriptions:
No Action
oxybutynin chloride 15 mg Tablet Extended Release 24hr
15 mg PO DAILY
atorvastatin [Lipitor] 10 mg Tablet
10 mg PO DAILY
hydroxychloroquine [Plaquenil] 200 mg Tablet
200 mg PO BID
acetaminophen [Tylenol] 325 mg Tablet
650 mg PO Q6HPRN PRN (Reason: mild pain)
psyllium Packet
1 packet PO DAILY
therapeutic multivitamin Tablet
1 tab PO DAILY
calcium carbonate [Tums] 200 mg calcium (500 mg) Tablet,Chewable
200 mg PO QIDPRN PRN (Reason: gerd)
folic acid 1 mg Tablet
1 mg PO DAILY
Glucosamine Chondroitin 550-30-1 mg Capsule
1 cap PO DAILY
Eliquis DVT-PE Treat 30D Start 5 mg (74 tabs) tablets,dose pack
See Rx Instructions .ROUTE .COMPLEX Qty: 74 0RF
Rx Instructions:
orally per package directions
Referrals:
Obey Alva MD [Family Provider, Family Practice]
Activity Restrictions/Additional Instructions:
Unfortunately you have an extensive clot in your lower leg that is causing your swelling. however, you do have strong pulses and normal sensation. There is no sign of infection. Elevate the leg when possible, and compress the leg with IVETH wraps when
upright to reduce swelling
Interventions
Interventions:
*Risk Screen - Suicide Last Done: 01/27/25 16:39
*General Assessment Last Done: 01/27/25 19:51
*Neglect/Abuse Screening Last Done: 01/27/25 16:39
*ED COVID-19 Vaccine History Last Done: 01/27/25 19:51
*ED Influenza Vaccine History Last Done: 01/27/25 19:51
[facility] Fall Risk Assessment Tool Last Done: 01/27/25 19:51
*Nursing Disposition Last Done: 01/27/25 21:44
ED- Cardiac Assessment Last Done: 01/27/25 19:53
ED- Pulmonary Assessment Last Done: 01/27/25 19:53
ED-Peripheral Vascular Assessment Last Done: 01/27/25 20:00
ED-Skin Assessment Last Done: 01/27/25 20:30
Discharge Date and Time
Discharge Date/Time: 01/27/25 21:44
Print Language: SLOVAK
== END 2025-01-27 21:44 | disposition home or self-care (01) ==
LOC: EMR 16:33
PROVIDERS: Emergency Medicine; EMERGENCY PHYSICIAN Emergency Medicine; FAMILY PHYSICIAN Family Medicine
DX: I82.402 Acute embolism and thrombosis of unspecified deep veins of left lower extremity (principal); E78.00 Pure hypercholesterolemia, unspecified; I10 Essential (primary) hypertension; G47.30 Sleep apnea, unspecified
CPT/HCPCS: 99283; 80053; 85025; 85610; 85730